=== PATIENT | female | born 1935 | race Caucasian/White ===

== ENCOUNTER → 2023-03-28 15:03 | Outpatient (REF) | payer MEDICARE, OTHER, SELFPAY ==
[2023-03-28 15:49] LABS: % Basophils 1.4 % (0-2); % Eosinophils 1.3 % (0-6); % Immature Granulocytes 0.5 % (0-0.5); % Lymphocytes 18.3 % (20.5-51.1); % Monocytes 11.3 % (1.7-9.3); % Neutrophils 67.2 % (42.2-75.2); Absolute Basophils 0.1 10^3/uL (0-0.2); Absolute Eosinophils 0.1 10^3/uL (0-0.7); Absolute Lymphocytes 1.6 10^3/uL (1.2-3.4); Absolute Neutrophils 5.8 10^3/uL (1.4-6.5); Hematocrit 40.2 % (37.0-47.0); Hemoglobin 13.4 g/dL (12.0-16.0); Mean Corp Hgb Conc. 33.3 g/dL (33.0-37.0); Mean Corpuscular Hgb 32.8 pg (27.0-31.0); Mean Corpuscular Volume 98.5 fL (81.0-99.0); Mean Platelet Volume 9.5 fL (7.4-10.4); Nucleated Red Blood Cells % 0 %; Platelet Count 320 10^3/uL (130-400); Red Blood Cell Count 4.08 10^6/uL (4.20-5.40); Red Cell Dist. Width 12.6 % (11.5-14.5); White Blood Cell Count 8.7 10^3/uL (4.8-10.8)
[2023-03-28 15:53] LABS: Urine Albumin Trace (Neg - Trace); Urine Bilirubin Negative (Negative); Urine Character Clear (Clear); Urine Color Yellow; Urine Glucose Negative (Negative); Urine Ketone Trace (Negative); Urine Leukocyte 2+ (Negative); Urine Nitrite Negative (Negative); Urine Occult Blood Negative (Negative); Urine Urobilinogen Negative (Neg - 1+)
[2023-03-28 15:59] LABS: Urine Mucus Few
[2023-03-28 16:00] LABS: Ammonia < 9 umol/L (9-30); Urine Bacteria Few (Negative); Urine Red Blood Cell 0-2 /HPF (0-2)
[2023-03-28 16:04] LABS: Erythrocyte Sed Rate 17 mm/hour (0-20)
[2023-03-28 16:12] LABS: Osmolality Serum 281 mOsm/kg (275-300)
[2023-03-28 16:16] LABS: Osmolality Urine 271 mOsm/kg (300-900)
[2023-03-28 16:18] LABS: ALT (SGPT) 19 U/L (0-35); AST (SGOT) 29 U/L (14-36); Albumin 3.7 g/dl (3.5-5.0); Alkaline Phosphatase 89 U/L (38-126); Blood Urea Nitrogen 13 mg/dl (7-17); Calcium 9.4 mg/dl (8.4-10.2); Carbon Dioxide 27 mmol/L (22-30); Chloride 98 mmol/L (98-107); Glucose 91 mg/dl (70-99); Potassium 4.4 mmol/L (3.5-5.1); Sodium 130 mmol/L (135-145); Total Bilirubin 0.7 mg/dl (0.2-1.3); Total Protein 6.3 g/dl (6.3-8.2); eGFR > 60.00
[2023-03-28 16:34] LABS: Urine Sodium 8 mmol/L (30-90)
[2023-03-28 16:42] LABS: TSH Reflex To Free T4 0.88 uIU/ml (0.47-4.68)
[2023-03-31 17:02] LABS: Lyme Antibody Screen, EIA Negative (Negative)
== END ==
LOC: REG 15:03
PROVIDERS: ATTENDING PHYSICIAN Nurse Practitioner Primary Care
DX: G93.32 Myalgic encephalomyelitis/chronic fatigue syndrome (principal); E87.1 Hypo-osmolality and hyponatremia; R44.3 Hallucinations, unspecified; G44.89 Other headache syndrome
CPT/HCPCS: 36415; 80053; 81003; 81015; 82140; 83930; 83935; 84300; 84443; 85025; 85652; 86618; 87077; 87086; 87186

== ENCOUNTER 2023-04-01 23:20 | Inpatient (IN) | payer MEDICARE, OTHER, SELFPAY ==
[2023-04-01 20:29] VITALS: BMI 21.0
[2023-04-01 20:31] VITALS: BP 126/84
--- NOTE | 2023-04-01 21:26 | ED.GENMED ---
History of Present Illness
General
Chief Complaint: Weakness
Source: patient
Exam Limitations: none
Time Seen by Provider: 04/01/23 20:57
Nursing documentation reviewed up to this point in time: agreed with
Travel History
Have you had any contact with someone who has COVID-19?: No
Do you have any symptoms of coronavirus? Fever > 100 degrees, chills, cough, shortness of breath, sore throat, loss of taste or smell, muscle aches, or headache?: No
History of Present Illness
History of Present Illness:
Patient diagnosed with UTI and started on Macrobid yesterday, presents to ED secondary to increased generalized weakness, decreased appetite, and multiple vomiting episodes today. Denies fever or chills. Denies coughing. Denies abdominal pain.
Denies diarrhea. Denies difficulty with urination. Of note, patient had hallucination 5 days ago at home, noted by her . Subsequently, patient was evaluated by her primary care physician who ordered blood work test as well as urinalysis,
which revealed infection. In addition, patient taking Tamiflu prophylactically, after being exposed to her grandchild who tested positive influenza 3 weeks ago, developed white coating in her tongue and swelling on day 4 of Tamiflu. States
discontinuing the medication, her symptoms resolved uneventfully. Patient had been at her baseline health when the confusion developed last week.
Past History
Past History
ED Past Medical History: Arrthythmia (afib on eliquis) and Hyperthyroidism
ED Past Surgical History: Cardiac and Orthopedic
Review of Systems
Review of Systems
Allergies reviewed?: Yes
All Other Systems: ROS reviewed and negative except as documented in HPI and ROS
Constitutional: Reports no symptoms
EENT: Reports no symptoms
Respiratory: Reports no symptoms
Cardiac: Reports no symptoms
ABD/GI: Reports nausea and vomiting; Denies abdominal pain or diarrhea
: Reports no symptoms
Musculoskeletal: Reports no symptoms
Skin: Reports no symptoms
Neurological: Reports weakness and other (Confusion)
Phy Exam
Physical Exam
Physical Exam:
Physical Exam
General: mild distress, not acutely ill. afebrile. tachycardic. weak appearing.
Head: nc/at. eomi
Neck: supple. no meningeal signs.
Heart: tachycardic, no murmur. equal radial pulses.
Lungs: no acute respiratory distress. clear bilaterally
Abdomen: normal bowel sounds. not tender.
Neuro: alert and oriented. no focal neurological deficits
Skin: no rash
Psychiatric: well kept. interactive and cooperative
Extremities: no edema. no calf tenderness.
Course
Orders/Labs/Results
Orders:
Orders
04/01/23 20:40
Electrocardiogram (*1) Urgent
Reason for Study: Tachycardia
04/01/23 20:41
EKG- Treatment ONCE
04/01/23 21:17
Straight cath- Treatment ONCE
04/01/23 21:19
COVID-19 Antigen Urgent
Source: Nasal Swab
Complete Blood Count/With Diff Urgent
Comprehensive Metabolic Panel Urgent
Lactic Acid Q4H
Comment: ON ICE, CANCEL 2ND ORDER IF FIRST LACTIC ACID LEVEL <2
Urinalysis Reflex To Culture Urgent
Date Specimen was Collected: 04/01/23
Time Specimen was Collected: 21:17
Blood Culture Q30M
АНДРЕЙ Source: Blood/Venous
Specimen Description:
Comment: FROM 2 SEPARATE SITES
Blood Culture Q30M
АНДРЕЙ Source: Blood/Venous
Specimen Description:
Comment: FROM 2 SEPARATE SITES
Influenza A+B Rapid Molecular Urgent
АНДРЕЙ Source: Nasal Swab
Specimen Description:
04/01/23 21:36
0.9% Sodium Chloride 1000 ml [Nss] 1,000 ml IV BOLUS
Acetaminophen [Tylenol] 650 mg PO NOW STA
04/01/23 22:05
LevoFLOXacin 500 MG/100 ML [Levaquin] 500 mg in 100 ml IV NOW
Ondansetron Injectable [Zofran] 4 mg IV NOW STA
04/01/23 22:08
Influenza A+B Rapid Molecular Urgent
АНДРЕЙ Source: Nasal Swab
Specimen Description:
04/01/23 22:34
Diltiazem HCl [Cardizem] 10 mg IV NOW STA
04/01/23 22:38
Apixaban [Eliquis] 2.5 mg PO NOW STA
04/01/23 22:45
Diltiazem 125 mg/125 ml Nss [Cardizem] 125 mg in 125 ml IV PER PROTOCOL
Initial dose in mg/hr, then titrate:: 5
Titrate to keep:: Heart rate 80-100 bpm
Titrate by mg/hr:: 5 mg/hr
Frequency of titrations (minutes):: 15
Maximum dose in mg/hr:: 15
04/01/23 22:55
Admit/Transfer Patient As Directed
Co-Sign Provider:
Level of Care: Inpatient admission
Assign to:: IMU- Intermediate Care
Physician / Group: radha medrano
Diagnosis: UTI
Reason for Hospitalization: UTI
Expected length of stay greater than two midnights?: Yes
ELOS- Estimated Length of Stay in days: 3
I certify the patient meets the requirements for IP care: Yes
04/01/23 22:56
Code Status As Directed
Resuscitation Status: Full Code
04/02/23 01:30
Lactic Acid Q4H
Comment: ON ICE, CANCEL 2ND ORDER IF FIRST LACTIC ACID LEVEL <2
Abnormal Lab Results
04/01/23
21:19
WBC 12.8 H 10^3/uL
(4.8-10.8)
MCH 32.3 H pg
(27.0-31.0)
Abs Immat Gran (auto) 0.1 H 10^3/uL
(0-0.05)
Absolute Neuts (auto) 11.8 H 10^3/uL
(1.4-6.5)
Absolute Lymphs (auto) 0.3 L 10^3/uL
(1.2-3.4)
Neutrophils % 92.2 H %
(42.2-75.2)
Lymphocytes % 2.0 L %
(20.5-51.1)
Sodium 130 L mmol/L
(135-145)
Creatinine 0.5 L mg/dL
(0.6-1.0)
Glucose 132 H mg/dl
(70-99)
AST 62 H U/L
(14-36)
ALT 46 H U/L
(0-35)
04/01/23 21:19
04/01/23 21:19
Vital Signs
Initial and Last Documented VS:
Initial Vital Signs
Temp Pulse Resp BP Pulse Ox
98.4 F 125 18 126/84 98
04/01/23 20:31 04/01/23 20:31 04/01/23 20:31 04/01/23 20:31 04/01/23 20:31
Last Documented Vital Signs
Temp Pulse Resp BP Pulse Ox
100.6 F H 134 33 109/86 94
04/01/23 22:00 04/01/23 22:50 04/01/23 22:30 04/01/23 22:50 04/01/23 22:30
MDM/Problems Addressed
MDM/Problems Addressed:
Urine culture (03/28) reviewed - enterococcus. Levaquin ordered.
Patient will be admitted for further evaluation and treatment.
Patient started on Cardizem infusion secondary to rapid atrial fibrillation.
*Critical Care Note
Total Time (30-74mins, 75-104mins- exclusive of procedures): Not Applicable
ED Attending Note
-
Portions of this chart may have been created with voice recognition software.� Occasional wrong word or��sound alike� substitutions may have occurred due to the inherent limitations of voice recognition software.
Discharge Plan
Departure
Patient Disposition: Admit
Date of Disposition: 04/01/23
Time of Disposition: 22:28
Admit to: Med/Surg
Presentation/result/management discussed w/ accepting MD/DO: Hospitalist
Covid-19: Negative COVID-19
Discharge Problem:
Acute UTI, Fever, Atrial fibrillation, rapid
Interventions
Interventions:
*Risk Screen - Suicide Last Done: 04/01/23 20:33
*General Assessment Last Done: 04/01/23 23:33
*Neglect/Abuse Screening Last Done: 04/01/23 20:33
[2023-04-01 21:28] LABS: % Basophils 0.3 % (0-2); % Eosinophils 0.2 % (0-6); % Immature Granulocytes 0.5 % (0-0.5); % Monocytes 4.8 % (1.7-9.3); % Neutrophils 92.2 % (42.2-75.2); Absolute Immature Granulocytes 0.1 10^3/uL (0-0.05); Absolute Lymphocytes 0.3 10^3/uL (1.2-3.4); Absolute Monocytes 0.6 10^3/uL (0.1-0.6); Absolute Neutrophils 11.8 10^3/uL (1.4-6.5); Hematocrit 41.3 % (37.0-47.0); Hemoglobin 14.2 g/dL (12.0-16.0); Mean Corp Hgb Conc. 34.4 g/dL (33.0-37.0); Mean Corpuscular Hgb 32.3 pg (27.0-31.0); Mean Corpuscular Volume 93.9 fL (81.0-99.0); Mean Platelet Volume 9.4 fL (7.4-10.4); Nucleated Red Blood Cells % 0 %; Platelet Count 324 10^3/uL (130-400); Red Cell Dist. Width 12.6 % (11.5-14.5); White Blood Cell Count 12.8 10^3/uL (4.8-10.8)
[2023-04-01 21:40] LABS: Lactic Acid 1.2 mmol/L (0.7-2.0)
[2023-04-01 21:43] LABS: ALT (SGPT) 46 U/L (0-35); AST (SGOT) 62 U/L (14-36); Albumin 4.1 g/dl (3.5-5.0); Alkaline Phosphatase 108 U/L (38-126); Blood Urea Nitrogen 11 mg/dl (7-17); Calcium 9.7 mg/dl (8.4-10.2); Carbon Dioxide 23 mmol/L (22-30); Chloride 98 mmol/L (98-107); Glucose 132 mg/dl (70-99); Potassium 3.5 mmol/L (3.5-5.1); Sodium 130 mmol/L (135-145); Total Bilirubin 1.1 mg/dl (0.2-1.3); Total Protein 6.7 g/dl (6.3-8.2); eGFR > 60.00
[2023-04-01 21:44] LABS: COVID-19 Antigen Negative (Negative)
[2023-04-01] MEDS: NSS 1000 IV (22:00)
[2023-04-01] MEDS: TYLENOL 650 MG PO (22:01)
[2023-04-01] MEDS: LEVAQUIN 100 IV (22:10)
[2023-04-01] MEDS: ZOFRAN 4 MG IV (22:11)
[2023-04-01 22:19] VITALS: BP 109/86
--- NOTE | 2023-04-01 22:29 | HPS.HSE ---
Addendum entered and electronically signed by Celso Olson MD 04/01/23 23:07:
Patient seen examined independently with [employer].� 87-year-old female past medical history atrial fibrillation on Eliquis, hypothyroidism, presenting with few days of weakness, decreased appetite and vomiting.� Had hallucinations 4 to 5 days ago.� Had
low-grade fever today.� No urinary symptoms or abdominal pain.� She had urinalysis and urine culture performed by primary care physician on 03/28 which showed Enterococcus.� She was started on Macrobid yesterday.� Patient also in atrial fibrillation
with RVR triggered by fever.� Labs show leukocytosis. Urinalysis pending.� Levaquin started.� IV fluids.� Cardizem drip started.
Original Note:
Family Physician
-
Family Physician: Ben Martinez
Chief Complaint
-
generalized weakness
vomiting
hallucination
History of Present Illness
87 year old with PMH for atrial fib, hyperparathyroidism presented to us with generalized weakness, vomiting since yesterday. patient was hallucinating on night. she had UA tested as outpatient, grew enterococcus and initiated on Levaquin
on Friday. stated poor appetite yesterday. noted low grade temp at home. denied runny nose, congestion and cough. denied chest pain, sob. denied abdominal pain, diarrhea. denied dysuria or hematuria.
repeat UA and culture pending. received a dose of Levaquin in ER. admitting for further management. patient also noted in atrial fib with RVR. initiated on Cardizem drip.
Medical History
Past Medical History
Past Medical History: Reports Other
Additional Past Medical History:
atrial fib
hyperthyroidism
Past Surgical History: Reports Other
Additional Past Surgical History:
total right hip partial replacement
hernia repair
abdominal aorta surgery
left knee surgery
Social History
Tobacco: Non-smoker
Alcohol: Occasional
Drug: None
Personal:
Living: With Family
Family History
Family History: Not pertinent
Allergies / Home Medications
Allergies reflects when Allergies were last updated in [employer].
Home Medications with original date entered in [employer]
Allergy/Medication List:
Allergies
Allergy/AdvReac Type Severity Reaction Status Date / Time
Latex, Natural Rubber Allergy Swelling Verified 11/25/22 16:56
mold Allergy Headache Verified 11/25/22 16:56
Penicillins Allergy Unknown Verified 11/25/22 16:56
Home Medications
apixaban 2.5 mg tablet (Eliquis) 2.5 mg PO BID Blood clot prevention/tx #60 tabs 10/16/21
ascorbic acid (vitamin C) 500 mg tablet (Vitamin C) 500 mg PO DAILY 11/13/21
cholecalciferol (vitamin D3) 25 mcg (1,000 unit) tablet (Vitamin D3) 1,000 mcg PO QPM 11/13/21
lutein 20 mg capsule 20 mg PO DAILY 11/13/21
multivitamin 1 tab PO DAILY 11/13/21
Tri-Est 1.25mg/Progesterine 50 1 cap PO DAILY 04/01/23
latanoprost 0.005 % eye drops 1 drp RIGHT EYE HS 04/01/23
propranolol 20 mg tablet 20 mg PO BID 04/01/23
thyroid (pork) 65 mg tablet 65 mg PO DAILY 04/01/23
Review of Systems
-
Constitutional: Reports Fever and Fatigue
EENT: Reports No Symptoms
Respiratory: Reports No Symptoms
Cardiac: Reports No Symptoms
Abdomen/GI: Reports Nausea and Vomiting
: Reports No Symptoms
Musculoskeletal: Reports No Symptoms
Skin: Reports No Symptoms
Neurological: Reports Weakness
Endocrine: Reports No Symptoms
Hematologic/Lymphatic: Reports No Symptoms
Psych: Reports No Symptoms
Physical Exam
Vital Signs
Vital Signs
Temp Pulse Resp BP Pulse Ox
98.4 F 130 23 126/84 97
04/01/23 20:31 04/01/23 21:30 04/01/23 21:30 04/01/23 20:31 04/01/23 21:30
Physical Exam
General: Well Developed, Well Nourished and No Apparent Distress
HEENT: NormoCephalic, Moist mucous membranes and Atraumatic
Respiratory: Clear
Cardiac: Irregular Rhythm and Tachycardia; No Murmur or Rub
GI: Soft, Non Tender, Non Distended and Normal Bowel Sounds; No Organomegaly
Rectal: Deferred by Provider
Musculoskeletal: No Clubbing, No Cyanosis and No Edema
Skin: No Rash
Neuro: AO x 3 and Nonfocal/grossly intact
Psych: Calm
Laboratory Results
-
04/01/23 21:19
04/01/23 21:19
Laboratory Results
Lactic Acid 1.2 mmol/L (0.7-2.0) 04/01/23 21:19
Total Bilirubin 1.1 mg/dl (0.2-1.3) 04/01/23 21:19
AST 62 U/L (14-36) H 04/01/23 21:19
ALT 46 U/L (0-35) H 04/01/23 21:19
Alkaline Phosphatase 108 U/L (38-126) 04/01/23 21:19
Data Reviewed
-
Lab Data: Labs Reviewed by me
Impression/Plan
-
#urinary tract infection
-urine culture with enterococcus
-wbc 12.8
-blood culture sent from ER
-repeat UA pending
-iv Levaquin
-ctm
#chornic hyponatremia likely dehydration
-na 134
-ctm
-normal saline continued
#elevated transaminase likely dehydration
-ast 62,alt 46
-normal saline continue
-monitor LFTs
#atrial fib with RVR exacerbated by acute infection/vomiting
-HR in 130's
-EKg with atrial fib with RVR
-fluids continued
-eliquis continued
-propranolol continued
-Cardizem continued
-follows Dr. Cruz, consider cardiology consult if no improvement in HR
Hypothyroidism
- thyroid continued
DVT ppx: Eliquis
Code: Full
[2023-04-01] MEDS: ELIQUIS 2.5 MG PO (22:43)
[2023-04-01] MEDS: CARDIZEM 125 IV (22:48)
[2023-04-01] MEDS: CARDIZEM 10 MG IV (22:50)
[2023-04-01 23:04] VITALS: BP 94/54
[2023-04-01 23:22] VITALS: BP 97/69
[2023-04-01 23:36] LABS: Urine Albumin Trace (Neg - Trace); Urine Bilirubin Negative (Negative); Urine Character Clear (Clear); Urine Color Yellow; Urine Glucose Negative (Negative); Urine Ketone 3+ (Negative); Urine Leukocyte Negative (Negative); Urine Nitrite Negative (Negative); Urine Occult Blood Negative (Negative); Urine Urobilinogen Negative (Neg - 1+)
[2023-04-01 23:57] VITALS: BMI 21.0
[2023-04-02] VITALS (31 sets, daily range): BP systolic 84–135; BP diastolic 55–96; PULSE 99–110; O2SAT 94–95; BMI 16.1; BMI 18.9
[2023-04-02] MEDS: NSS 1000 IV ×2 (00:16→12:07)
[2023-04-02 04:17] LABS: Hematocrit 36.2 % (37.0-47.0); Hemoglobin 12.4 g/dL (12.0-16.0); Mean Corp Hgb Conc. 34.3 g/dL (33.0-37.0); Mean Corpuscular Hgb 32.9 pg (27.0-31.0); Mean Platelet Volume 9.8 fL (7.4-10.4); Platelet Count 293 10^3/uL (130-400); Red Blood Cell Count 3.77 10^6/uL (4.20-5.40); Red Cell Dist. Width 12.6 % (11.5-14.5); White Blood Cell Count 12.3 10^3/uL (4.8-10.8)
[2023-04-02 04:51] LABS: Blood Urea Nitrogen 10 mg/dl (7-17); Calcium 8.5 mg/dl (8.4-10.2); Carbon Dioxide 22 mmol/L (22-30); Chloride 101 mmol/L (98-107); Estimated Creatinine Clearance 48 ml/min; Glucose 123 mg/dl (70-99); Potassium 3.5 mmol/L (3.5-5.1); Sodium 132 mmol/L (135-145); TSH 0.27 uIU/ml (0.47-4.68); eGFR > 60.00
[2023-04-02] MEDS: ARMOUR THYROID 60 MG PO (06:11)
--- NOTE | 2023-04-02 06:28 | PTCARENOTE ---
No acute events overnight. Placed on 2 liters NC. Remains in afib on cardizem gtt.
--- NOTE | 2023-04-02 07:39 | W.PN.HOSP.TC ---
Today's Communication/Plan
-
see A/P
Assessment / Plan
Assessment / Plan
HPI:�87-year-old female past medical history atrial fibrillation on Eliquis, hypothyroidism, p/w weakness, decreased appetite and vomiting.�
Had hallucinations 4 to 5 days ago.� Had low-grade fever DOA.� No urinary symptoms or abdominal pain.�She had urinalysis and urine culture performed by primary care physician on 03/28 which showed Enterococcus. She was started on Macrobid the day
prior to admission.�Patient also in atrial fibrillation with RVR triggered by fever.� Labs show leukocytosis. Urinalysis pending.� Levaquin started.� IV fluids.� Cardizem drip started.
A/P:
# Acute metabolic encephalopathy with visual hallucination (resolved) due to sepsis POA with enterococcus urinary tract infection
Outpt urine culture 03/28 with enterococcus
Follow blood culture
repeat UA this admission improved
Cont IV Levaquin
PT OT Eval for weakness
# Chronic mild hyponatremia, improving
Monitor on IVF
# elevated transaminase likely reactive
monitor LFTs
# Paroxysmal�atrial fib
Improved RVR with Cardizem drip, switch drip to PO Cardizem
Check update echo
Cont [facility] Eliquis
pt follows Dr. Andrews, consider cardiology consult if no improvement in HR
# Essential tremor
Cont [facility] Propranolol
# Hypothyroidism
thyroid continued
DVT ppx: Eliquis
Code: Full
DW RN
updated on the phone
Anticipated Discharge: 24 - 48 hours
Subjective/Interval History
-
Date of Service: April 02, 2023
Objective Data
-
Labs:
Laboratory Results
04/01/23 04/02/23
21:19 03:19
WBC 12.8 H 12.3 H
Hgb 14.2 12.4
Hct 41.3 36.2 L
Plt Count 324 293
Sodium 130 L 132 L
Potassium 3.5 3.5
Chloride 98 101
Carbon Dioxide 23 22
BUN 11 10
Creatinine 0.5 L 0.4 L
Glucose 132 H 123 H
Calcium 9.7 8.5
Total Bilirubin 1.1
AST 62 H
ALT 46 H
Alkaline Phosphatase 108
Vital Signs:
Vital Signs
Temp Pulse Resp BP Pulse Ox
36.8 C 93 26 111/74 94
04/02/23 04:12 04/02/23 07:00 04/02/23 07:00 04/02/23 07:00 04/02/23 07:00
I&O
04/01/23 04/02/23 04/03/23
06:59 06:59 06:59
Intake Total 960 / 960
Output Total 100 / 100
Balance 860 / 860
Review of Systems
-
All other systems: Reviewed and negative
Constitutional: Reports Weakness
Physical Exam
-
General: Well Developed, Comfortable, Conversant and Appears Chronically Ill
HEENT: Normocephalic, Atraumatic and Oxygen (2L NC)
Respiratory: Clear to Auscultation and Non Labored Respirations; Negative Accessory Resp Muscle Use
Cardiac: S1/S2 and Irregular Rhythm
GI: Soft, Nontender and Nondistended
Neuro: Awake
Psych: Calm and Intact Judgement/Insight
Data Reviewed
-
Labs: Labs Reviewed by me
[2023-04-02] MEDS: CARDIZEM 30 MG PO (08:18)
[2023-04-02] MEDS: ELIQUIS 2.5 MG PO ×2 (08:18→19:53)
[2023-04-02] MEDS: KCL 40 MEQ PO (08:18)
[2023-04-02] MEDS: INDERAL 20 MG PO (08:18)
[2023-04-02 08:24] LABS: ALT (SGPT) 31 U/L (0-35); AST (SGOT) 41 U/L (14-36); Albumin 2.8 g/dl (3.5-5.0); Alkaline Phosphatase 65 U/L (38-126); Direct Bilirubin 0.5 mg/dl (0.0-0.4); Total Protein 5.3 g/dl (6.3-8.2)
--- NOTE | 2023-04-02 11:51 | PTCARENOTE ---
Patient's BP low at 84/55. Pt's Cardizem @5 ml/hr turned off. TT to to make aware. Order for 250 ml bolus.
[2023-04-02] MEDS: NSS 250 IV ×2 (12:07→13:46)
--- NOTE | 2023-04-02 13:37 | PTCARENOTE ---
Patient's BP still soft following 250 ml bolus, most recent BP 91/59. Pt still due for 1300 dose of Cardizem 30mg PO. HR's 100-110s. TT to . Advised to hold Cardizem.
[2023-04-02] MEDS: CARDIZEM PO (13:41)
--- NOTE | 2023-04-02 13:48 | CON.CAR ---
Addendum entered and electronically signed by Cecilia Burns MD 04/02/23 17:45:
I saw and examined the patient.
The Manager [employer]'s note was reviewed and I agree with the note.
Comment: Briefly, Ms Olmedo is a 87-year-old female with past medical history of permanent atrial fibrillation on chronic anticoagulation with Eliquis, chronic hyponatremia, hypothyroidism, moderate mitral regurgitation, mild to moderate aortic
regurgitation who presents this admission with a UTI and sepsis secondary to urinary source found to be in A-fib with RVR for which we are consulted. Her heart rates are being triggered due to underlying infection. She has had previous
cardioversions and reverted back to atrial fibrillation.
Vital signs reviewed. Telemetry with intermittent episodes of A-fib with RVR. Exam notable for an elderly female in no acute distress, awake and alert, irregularly irregular heart rhythm, normal S1 and S2, 2 out of 6 systolic ejection murmur at
the right upper sternal border, lungs are clear to auscultation bilaterally, no JVD, abdomen is soft nontender, nondistended with active bowel sounds, warm extremities.
Recommendations:
1. Agree with rate control strategy in the setting of advanced age with prior cardioversions and reversion back to atrial fibrillation. Continue standing propranolol which she comes in on with as needed doses as directed. Continue to monitor
blood pressures closely.
2. On Eliquis long-term for stroke prevention.
Cecilia Burns MD, [facility], [facility]
Original Note:
Consultation
Consultation Request
Date/Time Consultation Requested: 04/02/23
Date/Time Consultation Performed: 04/02/23
Requesting Provider: Dr. Bowers
Performing Provider: Dr. Beck
Reason for Consultation: Afib with RVR
Medical History
-
History of Present Illness:
Patient came to ER yesterday with confusion and was admitted with sepsis and UTI, cardiology is now consulted for permanent A-fib that was rapid on admission. Patient is in the room along with her son and daughter. They report that the patient
had increasing confusion starting as much as 1 week ago. Things became worse yesterday and patient came to ER and was admitted with sepsis and Enterococcus UTI. Patient has a history of permanent A-fib. She has previous cardioversion
11/29/2021 and 11/29/2022, but always recurred with A-fib and there was no symptomatic improvement with yazdanism of sinus rhythm so she was transition to permanent A-fib with rate control. Patient takes short acting propranolol 20 mg twice daily
as an outpatient. Patient takes Eliquis 2.5 mg twice daily as an outpatient for age 87 and weight of 50 kg. Patient was briefly started on Cardizem drip in the ER for rapid A-fib and this morning was given her usual dose of short acting
propranolol 20 mg twice daily plus a dose of short acting Cardizem 30 mg p.o. 4 times daily. The patient then developed hypotension and the short acting Cardizem was stopped. Patient continues to be unaware of palpitations. No chest pain or
shortness of breath.
PMH:
Permanent atrial fibrillation
Chronic Eliquis anticoagulation
Chronic hyponatremia
Hypothyroidism
GERD
Moderate MR
Mild to moderate AI
Past Medical History
Past Medical History: Other (in HPI)
Past Surgical History: Orthopedic
Social History
Tobacco: Non-Smoker
Alcohol: None
Drug: None
Personal:
Family History
Family History: Cancer, Hypertension and Other (CVA)
Allergies / Home Medications
Allergy/AdvReac Type Severity Reaction Status Date / Time
Latex, Natural Rubber Allergy Swelling Verified 11/25/22 16:56
mold Allergy Headache Verified 11/25/22 16:56
Penicillins Allergy Unknown Verified 11/25/22 16:56
Medication Instructions Recorded Confirmed Type
apixaban 2.5 mg tablet (Eliquis) 2.5 mg PO BID Blood clot 10/16/21 04/01/23 Rx
prevention/tx #60 tabs
ascorbic acid (vitamin C) 500 mg 500 mg PO DAILY Supplement 11/13/21 04/01/23 History
tablet (Vitamin C)
cholecalciferol (vitamin D3) 25 1,000 mcg PO QPM Supplement 11/13/21 04/01/23 History
mcg (1,000 unit) tablet (Vitamin
D3)
lutein 20 mg capsule 20 mg PO DAILY Supplement 11/13/21 04/01/23 History
multivitamin 1 tab PO DAILY Supplement 11/13/21 04/01/23 History
Tri-Est 1.25mg/Progesterine 50 1 cap PO DAILY HORMONE 04/01/23 04/01/23 History
latanoprost 0.005 % eye drops 1 drp RIGHT EYE HS Eye Condition 04/01/23 04/01/23 History
propranolol 20 mg tablet 20 mg PO BID Blood Pressure 04/01/23 04/01/23 History
thyroid (pork) 65 mg tablet 65 mg PO DAILY Thyroid 04/01/23 04/01/23 History
Review of Systems
-
History Source: Patient and Family (son and daughter bedside helping with HPI)
All other systems: Negative unless noted
Physical Exam
Vital Signs
Temp Pulse Resp BP Pulse Ox
98.0 F 93 18 91/59 95
04/02/23 11:44 04/02/23 13:30 04/02/23 13:30 04/02/23 13:30 04/02/23 13:30
GEN: NAD. AAO to person, place and situation
HEENT: EOMI, MMM
LUNGS: CTA B/L, no wheezes or rales
CV: irreg, S1/S2, 1/6 syst LSB
ABD: soft, BS+, NT, ND
EXT: No clubbing, cyanosis, lesions or edema B/L
NEURO: Gross non-focal
SKIN: Warm, dry and pink. No rash
Lab Results
04/02/23 03:19
04/02/23 03:19
Impression / Plan
-
PCP: Dr. Martinez
Cardiology: Dr. Andrews
Impression:
Admitted with TME in the setting of UTI
Enterococcus UTI
Sepsis
Permanent atrial fibrillation with rapid ventricular response on admission
Chronic Eliquis anticoagulation
Chronic hyponatremia
Elevated LFTs
Hypothyroidism
GERD
Moderate MR
Mild to moderate AI
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
Plan:
-Patient came to ER yesterday with confusion and was admitted with sepsis and UTI, cardiology is now consulted for permanent A-fib that was rapid on admission. Patient is in the room along with her son and daughter. They report that the patient
had increasing confusion starting as much as 1 week ago. Things became worse yesterday and patient came to ER and was admitted with sepsis and Enterococcus UTI. Patient has a history of permanent A-fib. She has previous cardioversion
11/29/2021 and 11/29/2022, but always recurred with A-fib and there was no symptomatic improvement with yazdanism of sinus rhythm so she was transition to permanent A-fib with rate control. Patient takes short acting propranolol 20 mg twice daily
as an outpatient. Patient takes Eliquis 2.5 mg twice daily as an outpatient for age 87 and weight of 50 kg. Patient was briefly started on Cardizem drip in the ER for rapid A-fib and this morning was given her usual dose of short acting
propranolol 20 mg twice daily plus a dose of short acting Cardizem 30 mg p.o. 4 times daily. The patient then developed hypotension and the short acting Cardizem was stopped. Patient continues to be unaware of palpitations. No chest pain or
shortness of breath.
-Talked with patient's son and daughter in the room at length. Reviewed admission for sepsis and talked briefly about what sepsis is and the current plan of treatment which include supportive care and antibiotics.
-Also reviewed patient's history of permanent atrial fibrillation and that it is not unexpected for A-fib rates to become rapid in the setting of sepsis. Reviewed initial rate control measures with Cardizem drip and then the doses of short acting
Inderal and Cardizem this morning. Made a plan to increase her dose of Inderal to 40 mg twice daily, but this is written in her chart as 20 mg twice daily standing order plus a as needed order for 20 mg twice daily to account for if blood pressure
is less than 110. Hopefully most of the time she will be able to tolerate 40 mg twice daily dosing.
-Her usual dose of Eliquis 2.5 mg twice daily has been continued. Age 87 and weight 50 kg
-ECG reviewed by me shows atrial fibrillation and rapid ventricular response at 120 bpm, stable QTc and no acute ischemic changes
-Patient with a history of moderate mitral regurgitation and posterior leaflet prolapse by echo 05/14/2021. There is also history of mild to moderate AI. There is no evidence of heart failure at this time and will follow daily weights, ordered by
me, while receiving IV fluids.
--- NOTE | 2023-04-02 14:07 | VNURNOTE ---
Home Health Liaison met with patient's daughter Brionna to discuss [facility] nurse/therapy, visits, schedule and homebound status. She is agreeable and understands that visits at home will be 2-3 x per week to assess and teach medical management. VN
brochure provided with contact information. Daughter is aware that [facility] will contact the patient for start of care in 1-2 days after discharge from . Daughter requesting [employer] consult for grief resources as the patient has lost 3 family members in
the past 8 months. [facility] referral completed in [facility].
--- NOTE | 2023-04-02 16:05 | CM ---
Patient with Dx sepsis, UTI, Paroxysmal�atrial fib. Room air. Receiving IV Levaquin, IVF. PT & OT recommend HH.
Met with patient, and daughter Brionna.
The patient resides with her in a 2 story house with 2 EDMUNDO.
The patient has been independent in ADLs and ambulation using her RW when outside.
She was able to do the stairs at home despite some right knee pain.
DME - [facility], [facility]
VN - prior [facility]
SNF - none
[facility] - [facility]
PCP - Ben Martinez
Pharmacy - [facility]
Offered VN and patient and family request [facility] for PT/OT and possibly SN.
Referral to Ivania, [facility] Liaison.
Plan home with [facility].
[2023-04-02] MEDS: XALATAN OPHTHALMIC SOLUTION 1 DROP RIGHT EYE (20:53)
[2023-04-02] MEDS: LEVAQUIN 150 IV (22:01)
--- NOTE | 2023-04-02 22:05 | PTCARENOTE ---
bp back wnl- ax3 but forgetful. afib 110-120. pt and family reqest stool softener.no bm in almost 2 days. developmental therapist ordered softener see apr. bed alarm in place due to forgetfulness
[2023-04-02] MEDS: SENOKOT-S 1 TABLET PO (22:07)
[2023-04-03] VITALS (14 sets, daily range): BP systolic 112–147; BP diastolic 79–99; PULSE 103; BMI 18.4
[2023-04-03] MEDS: NSS 1000 IV (01:15)
[2023-04-03 04:18] LABS: Hematocrit 33.2 % (37.0-47.0); Hemoglobin 11.4 g/dL (12.0-16.0); Mean Corp Hgb Conc. 34.3 g/dL (33.0-37.0); Mean Corpuscular Hgb 32.2 pg (27.0-31.0); Mean Corpuscular Volume 93.8 fL (81.0-99.0); Mean Platelet Volume 9.5 fL (7.4-10.4); Platelet Count 234 10^3/uL (130-400); Red Blood Cell Count 3.54 10^6/uL (4.20-5.40); Red Cell Dist. Width 12.6 % (11.5-14.5)
[2023-04-03 05:04] LABS: ALT (SGPT) 23 U/L (0-35); AST (SGOT) 23 U/L (14-36); Albumin 2.5 g/dl (3.5-5.0); Alkaline Phosphatase 61 U/L (38-126); Blood Urea Nitrogen 13 mg/dl (7-17); Calcium 8.7 mg/dl (8.4-10.2); Carbon Dioxide 19 mmol/L (22-30); Chloride 105 mmol/L (98-107); Direct Bilirubin 0.4 mg/dl (0.0-0.4); Estimated Creatinine Clearance 55 ml/min; Glucose 99 mg/dl (70-99); Sodium 132 mmol/L (135-145); Total Bilirubin 0.6 mg/dl (0.2-1.3); eGFR > 60.00
[2023-04-03] MEDS: ARMOUR THYROID 60 MG PO (05:49)
--- NOTE | 2023-04-03 06:31 | PTCARENOTE ---
pt woke up confused- suspicious of taking pills. after some reoriented took pills but then was still not quite sure how she got here. support and reorientation given
--- NOTE | 2023-04-03 08:05 | PTCARENOTE ---
Patient received from lead systems analyst. Patient resting comfortably in bed. AAO, confused at times. VSS although HR now 120's-130's, will reach out to hospitalist in regards to medication being held. No events noted overnight. No complaints of pain.
NSS through IV. Call velasquez in reach.
--- NOTE | 2023-04-03 08:55 | W.PN.HOSP.TC ---
Addendum entered and electronically signed by Christelle Bowers MD 04/03/23 13:43:
Updated on the phone
Original Note:
Today's Communication/Plan
-
see A/P
Assessment / Plan
Assessment / Plan
HPI:�87-year-old female past medical history atrial fibrillation on Eliquis, hypothyroidism, p/w weakness, decreased appetite and vomiting.�
Had hallucinations 4 to 5 days ago.� Had low-grade fever DOA.� No urinary symptoms or abdominal pain.�She had urinalysis and urine culture performed by primary care physician on 03/28 which showed Enterococcus. She was started on Macrobid the day
prior to admission.�Patient also in atrial fibrillation with RVR triggered by fever.� Labs show leukocytosis. Urinalysis pending.� Levaquin started.� IV fluids.� Cardizem drip started.
A/P:
# Acute metabolic encephalopathy with visual hallucination (resolved) due to sepsis POA with enterococcus urinary tract infection
Outpt urine culture 03/28 with enterococcus
blood cultures negative
repeat UA this admission improved
Kidney US: Unremarkable sonographic appearance of the kidneys.
Cont IV Levaquin
PT OT recc HH
# Paroxysmal�atrial fib with RVR
Off Cardizem drip
cont FUR SEWER Inderal and PRN Inderal
Echo: EF 55-60%. Diastolic function indeterminate due to atrial fibrillation.�Since echocardiogram November 2021, there is no significant change.
Cont FUR SEWER Eliquis
Cardiology on board for RVR
# Chronic mild hyponatremia, improving
Monitor on IVF
# Elevated transaminase likely reactive
resolved
# Essential tremor
Cont FUR SEWER Propranolol
# Hypothyroidism
thyroid continued
DVT ppx: Eliquis
Code: Full
DW RN
Anticipated Discharge: 24 - 48 hours
Subjective/Interval History
-
Date of Service: April 03, 2023
Objective Data
-
Labs:
Laboratory Results
04/03/23
03:40
WBC 7.0
Hgb 11.4 L
Hct 33.2 L
Plt Count 234 D
Sodium 132 L
Potassium 4.0
Chloride 105
Carbon Dioxide 19 L
BUN 13
Creatinine 0.4 L
Glucose 99
Calcium 8.7
Total Bilirubin 0.6
AST 23
ALT 23
Alkaline Phosphatase 61
Vital Signs:
Vital Signs
Temp Pulse Resp BP Pulse Ox
36.9 C 153 18 133/97 94
04/03/23 04:39 04/03/23 06:00 04/03/23 06:00 04/03/23 06:00 04/03/23 06:00
I&O
04/02/23 04/03/23 04/04/23
06:59 06:59 06:59
Intake Total 960 / 960 2019
Output Total 100 / 100 200 / 200
Balance 860 / 860 1820 / 1820
Review of Systems
-
All other systems: Reviewed and negative
Constitutional: Reports Weakness
Physical Exam
-
General: Well Developed, Comfortable, Conversant and Appears Chronically Ill
HEENT: Normocephalic and Atraumatic
Respiratory: Clear to Auscultation and Non Labored Respirations; Negative Accessory Resp Muscle Use
Cardiac: S1/S2, Irregular Rhythm and Tachycardic
GI: Soft, Nontender and Nondistended
Neuro: Awake
Psych: Calm and Intact Judgement/Insight
Data Reviewed
-
Labs: Labs Reviewed by me
[2023-04-03] MEDS: SENOKOT-S 1 TABLET PO ×2 (09:00→20:02)
[2023-04-03] MEDS: ELIQUIS 2.5 MG PO ×2 (09:01→20:02)
[2023-04-03] MEDS: INDERAL 20 MG PO (09:01)
--- NOTE | 2023-04-03 09:04 | W.PN.CARDCBS ---
Today's Communication / Plan
-
Cont HR control for perm aFib
Resume IV cardizem and continue with Propanolol and increase for better HR control.
Transition off IV cardizem over next 24 hrs.
Cont Eliquis 2.5 mg BID.
Cont tx for sepsis as per primary service.
Impression / Plan
-
.
PCP: Dr. Martinez
Cardiology: Dr. Andrews
Impression:
Admitted with TME in the setting of UTI/sepsis
Enterococcus UTI with Sepsis
Permanent atrial fibrillation with rapid ventricular response on admission
Chronic Eliquis anticoagulation
Chronic hyponatremia
Elevated LFTs
Hypothyroidism
GERD
Moderate MR
Mild to moderate AI
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
Plan:
Cont HR control for perm aFib
Resume IV cardizem and continue with Propanolol and increase for better HR control.
Transition off IV cardizem over next 24 hrs.
Cont Eliquis 2.5 mg BID.
Cont tx for sepsis as per primary service.
Reviewed with nursing
HPI:Patient came to ER yesterday with confusion and was admitted with sepsis and UTI, cardiology is now consulted for permanent A-fib that was rapid on admission. Patient is in the room along with her son and daughter. They report that the
patient had increasing confusion starting as much as 1 week ago. Things became worse yesterday and patient came to ER and was admitted with sepsis and Enterococcus UTI. Patient has a history of permanent A-fib. She has previous cardioversion
11/29/2021 and 11/29/2022, but always recurred with A-fib and there was no symptomatic improvement with mormonism of sinus rhythm so she was transition to permanent A-fib with rate control. Patient takes short acting propranolol 20 mg twice daily
as an outpatient. Patient takes Eliquis 2.5 mg twice daily as an outpatient for age 87 and weight of 50 kg. Patient was briefly started on Cardizem drip in the ER for rapid A-fib and this morning was given her usual dose of short acting
propranolol 20 mg twice daily plus a dose of short acting Cardizem 30 mg p.o. 4 times daily. The patient then developed hypotension and the short acting Cardizem was stopped. Patient continues to be unaware of palpitations. No chest pain or
shortness of breath.
Progress Note - Continuous Towel Roller
Subjective
Date of Service: April 03, 2023
Pt seen and examined. No cp
Objective
Labs:
04/03/23 03:40
04/03/23 03:40
Labs
Hgb 11.4 g/dL (12.0-16.0) L 04/03/23 03:40
Hct 33.2 % (37.0-47.0) L 04/03/23 03:40
Plt Count 234 10^3/uL (130-400) D 04/03/23 03:40
Sodium 132 mmol/L (135-145) L 04/03/23 03:40
Potassium 4.0 mmol/L (3.5-5.1) 04/03/23 03:40
BUN 13 mg/dl (7-17) 04/03/23 03:40
Creatinine 0.4 mg/dL (0.6-1.0) L 04/03/23 03:40
Glucose 99 mg/dl (70-99) 04/03/23 03:40
Vital Signs and I&O:
Vital Signs
Temp Pulse Resp BP Pulse Ox
98.5 F 153 18 133/97 94
04/03/23 04:39 04/03/23 06:00 04/03/23 06:00 04/03/23 06:00 04/03/23 06:00
Vital Signs
Temp Pulse Resp BP Pulse Ox
98.5 F 153 18 133/97 94
04/03/23 04:39 04/03/23 06:00 04/03/23 06:00 04/03/23 06:00 04/03/23 06:00
Intake & Output
04/01/23 04/02/23 04/03/23 04/04/23
06:59 06:59 06:59 06:59
Intake Total 960 / 960 2019
Output Total 100 / 100 200 / 200
Balance 860 / 860 1820 / 1820
Physical Exam
Physical Exam
General: No acute distress, AAOX3
Neck: Negative JVD
Heart: Irregularly irregular, Negative S3 positive S1/S2, Negative S4, No murmur
Lungs: CTA b/l, negative wheezes/rales/rhonchi
Abd: Positive BS, NT/ND, neg rebound/rigidity/guarding
Ext: Negative cyanosis/clubbing/edema
Neuro: nonfocal
[2023-04-03] MEDS: CARDIZEM 125 IV (14:09)
--- NOTE | 2023-04-03 14:55 | PN.CDI ---
CDI
- -
CDI:
Physician Documentation Request
Admit Date: 04/01/23 23:20
Dear Doctor Elissa,
Patient noted to have atrial fib , treated with cardizem.
Hospitalist progress note refers to the atrial fibrillation as paroxysmal.
Cardiology as permanent.
In an attempt to clarify potentially conflicting documentation, please clarify the type of atrial fibrillation:
Paroxysmal atrial fibrillation - terminates spontaneously or with intervention within 7 days of onse
Permanent atrial fibrillation - when a decision has been made to accept the presence of AF and there is no further attempt to restore or maintain sinus rhythm
Other - please specify
Use of terms such as suspected, likely, concern for, or probable (associated with a specific diagnosis that is being evaluated, monitored, or treated as if it exists) are acceptable and can be coded in the inpatient setting, when documented at the
time of discharge.
Thank you,
Mica Garcia RN, BSN
CDI Specialist
tiger text
Please use your independent medical judgment in providing your response.
--- NOTE | 2023-04-03 15:00 | PN.CDI ---
CDI
- -
CDI:
Physician Documentation Request
Admit Date: 04/01/23 23:20
Dear Doctor Elissa,
86 year old female.
04/02 note states ' CBW 117 lb 4.575 oz BMI 18.9 normal range (underweight for adults > 65).... Per ASPEN/AND guidelines, pt meets for moderate malnutrition in context of chronic illness as evidenced by < 75% intake est needs x > 1 month, muscle
loss, fat loss.
Based on the information, which of the following most accurately represents the patient's nutritional status?
Moderate Malnutrition
Underweight without malnutrition
No nutritional deficiency
Other (please specify)
[place] Criteria ([facility] Hospitalist 2017)
2 or more criteria must be present for either
non severe or severe malnutrition
Note that the criteria differs related to the
presence of an acute or chronic illness
Acute Illness Chronic Illness
Energy Intake Non Severe: <75% for >7 days Non Severe: <75% for >1 month
Severe: <50% for >5 days Severe: <75% for >1 month
Weight Loss Non Severe: 1-2% over 1 week Non Severe: 5% over 1 month
5% over 1 month 7.5% over 3 months
7.5% over 3 months 10% over 6 months
1 year N/A 20% over 1 year
Severe: >2% over 1 week Severe: >5% over 1 month
>5% over 1 month >7.5% over 3 months
>7.5% over 3 months >10% over 6 months
1 year N/A >20% over 1 year
Body Fat Non Severe: Mild Decrease Non Severe: Mild Loss
Severe: Moderate Decrease Severe: Severe Loss
Muscle Mass Non Severe: Mild Decrease Non Severe: Mild Loss
Severe: Moderate Decrease Severe: Severe Loss
Fluid Accumulation Non Severe: Mild Accumulation Non Severe: Mild Accumulation
Severe: Moderate to severe Severe: Moderate to severe
accumulation accumulation
Reduced Infection Control Manager Strength Non Severe: N/A Non Severe: N/A
Severe: Measurably reduced Severe: Measurably reduced
Additional criteria that can be used to Determine if Mild or Moderate Malnutrition (Merck Manual 2018)
Mild Moderate Severe
Albumin gm/dl <3.0 gm/dl <2.5 gm/dl <2.0 gm/dl
Pre Albumin mg/dl <15 gm/dl <10 mg/dl <5.0 mg/dl
BMI <18.5 <17 <16
Use of terms such as suspected, likely, concern for, or probable (associated with a specific diagnosis that is being evaluated, monitored, or treated as if it exists) are acceptable and can be coded in the inpatient setting, when documented at the
time of discharge.
Thank you,
Mica Garcia RN, BSN
CDI Specialist
tiger text
Please use your independent medical judgment in providing your response.
--- NOTE | 2023-04-03 20:00 | PTCARENOTE ---
Pt received awake alert and oriented but forgetful. Cardizem drip remains on with heart rate 80s. Assessment as charted. Will continue to monitor.
[2023-04-03] MEDS: INDERAL 40 MG PO (20:02)
[2023-04-03] MEDS: LEVAQUIN 150 IV (21:41)
[2023-04-03] MEDS: XALATAN OPHTHALMIC SOLUTION 1 DROP RIGHT EYE (21:42)
[2023-04-04] VITALS (14 sets, daily range): BP systolic 115–154; BP diastolic 67–119; PULSE 100; O2SAT 97; BMI 18.5
[2023-04-04] MEDS: ARMOUR THYROID 60 MG PO (05:05)
--- NOTE | 2023-04-04 05:22 | PTCARENOTE ---
Pt woke up during the night confused and attempted to get OOB. Bed alarm was on and alerted staff. Pt assisted to bathroom and reoriented. Will continue to monitor.
[2023-04-04 05:24] LABS: Hematocrit 35.7 % (37.0-47.0); Hemoglobin 12.3 g/dL (12.0-16.0); Mean Corp Hgb Conc. 34.5 g/dL (33.0-37.0); Mean Corpuscular Hgb 32.4 pg (27.0-31.0); Mean Corpuscular Volume 93.9 fL (81.0-99.0); Mean Platelet Volume 9.4 fL (7.4-10.4); Platelet Count 266 10^3/uL (130-400); Red Cell Dist. Width 12.8 % (11.5-14.5); White Blood Cell Count 7.7 10^3/uL (4.8-10.8)
[2023-04-04 05:38] LABS: Blood Urea Nitrogen 11 mg/dl (7-17); Calcium 9.1 mg/dl (8.4-10.2); Carbon Dioxide 23 mmol/L (22-30); Chloride 104 mmol/L (98-107); Estimated Creatinine Clearance 55 ml/min; Glucose 103 mg/dl (70-99); Potassium 3.5 mmol/L (3.5-5.1); Sodium 135 mmol/L (135-145); eGFR > 60.00
--- NOTE | 2023-04-04 08:05 | W.PN.CARDCBS ---
Today's Communication / Plan
-
Stop IV diltiazem
Continue propranolol
As needed IV diltiazem if rates rise
Continue Eliquis
Check proBNP, neck veins up somewhat
Impression / Plan
-
.
PCP: Dr. Martinez
Cardiology: Dr. Andrews
Impression:
Admitted with TME in the setting of UTI/sepsis
Enterococcus UTI with Sepsis
Permanent atrial fibrillation with rapid ventricular response on admission
Chronic Eliquis anticoagulation
Chronic hyponatremia
Elevated LFTs
Hypothyroidism
GERD
Moderate MR
Mild to moderate AI
History of HFpEF by records, patient denies
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
Echo 04/02/2023:Mild septal hypertrophy, EF 55-60%, mild MR, MAC, mild to moderate aortic regurgitation, mild TR, pulmonary artery systolic pressure 50 mmHg, severely dilated right atrium, aorta is 3.9 cm
Plan:
Permanent A-fib: Heart rate is better controlled, propranolol has been doubled to 40 twice daily. Will transition to propranolol LA 80 mg a day. Continue Eliquis. As needed IV diltiazem if rates rise
UTI/urosepsis: Per hospitalist
Valvular heart disease: MR is less prominent by echo today, aortic regurgitation is stable
Questionable history of HFpEF: proBNP ordered given neck veins and few crackles at bases
TME: Improved
HPI:Patient came to ER yesterday with confusion and was admitted with sepsis and UTI, cardiology is now consulted for permanent A-fib that was rapid on admission. Patient is in the room along with her son and daughter. They report that the
patient had increasing confusion starting as much as 1 week ago. Things became worse yesterday and patient came to ER and was admitted with sepsis and Enterococcus UTI. Patient has a history of permanent A-fib. She has previous cardioversion
11/29/2021 and 11/29/2022, but always recurred with A-fib and there was no symptomatic improvement with pentecostal of sinus rhythm so she was transition to permanent A-fib with rate control. Patient takes short acting propranolol 20 mg twice daily
as an outpatient. Patient takes Eliquis 2.5 mg twice daily as an outpatient for age 87 and weight of 50 kg. Patient was briefly started on Cardizem drip in the ER for rapid A-fib and this morning was given her usual dose of short acting
propranolol 20 mg twice daily plus a dose of short acting Cardizem 30 mg p.o. 4 times daily. The patient then developed hypotension and the short acting Cardizem was stopped. Patient continues to be unaware of palpitations. No chest pain or
shortness of breath.
Progress Note - Security Systems Manager
Subjective
Date of Service: April 04, 2023:
She offers no cardiac complaints at this time. Some focal left abdominal pain 'I think I popped a hernia'
Allergies: Penicillin
Outpatient meds: Eliquis 2.5 mg twice daily, propranolol 20 mg twice daily, thyroid, estrogen,
Inpatient Meds Eliquis 2.5 twice daily, [place] Thyroid, Levaquin, propranolol 40 mg twice daily, diltiazem IV
PMH: Permanent A-fib, moderate MR, mild to moderate AI, hyponatremia, HFpEF, CAD by CT scan, MVP
PSH: Herniorrhaphy, orthopedic, aortic
FH/SH: Reviewed
ROS negative except as above
Hemoglobin 12.3, platelets 266, BUN and creatinine 11 and 0.4, potassium 3.5, no troponin or proBNP during this hospital stay
EKG atrial fibrillation left axis, possible IMI, RSR prime, cannot exclude anterior HI, renal ultrasound okay
Telemetry: Rate controlled on IV diltiazem
Objective
Labs:
04/04/23 05:02
04/04/23 05:02
Labs
Hgb 12.3 g/dL (12.0-16.0) 04/04/23 05:02
Hct 35.7 % (37.0-47.0) L 04/04/23 05:02
Plt Count 266 10^3/uL (130-400) 04/04/23 05:02
Sodium 135 mmol/L (135-145) 04/04/23 05:02
Potassium 3.5 mmol/L (3.5-5.1) 04/04/23 05:02
BUN 11 mg/dl (7-17) 04/04/23 05:02
Creatinine 0.4 mg/dL (0.6-1.0) L 04/04/23 05:02
Glucose 103 mg/dl (70-99) H 04/04/23 05:02
Vital Signs and I&O:
Vital Signs
Temp Pulse Resp BP Pulse Ox
36.5 C 102 19 153/119 96
04/04/23 03:55 04/04/23 06:00 04/04/23 06:00 04/04/23 06:00 04/04/23 04:00
Vital Signs
Temp Pulse Resp BP Pulse Ox
36.5 C 102 19 153/119 96
04/04/23 03:55 04/04/23 06:00 04/04/23 06:00 04/04/23 06:00 04/04/23 04:00
Intake & Output
04/02/23 04/03/23 04/04/23 04/05/23
07:59 07:59 07:59 07:59
Intake Total 960 / 960 2019 430 / 430
Output Total 200 / 200 100 / 100 525 / 525
Balance 760 / 760 1920 / 1920 -95 / -95
Physical Exam
Physical Exam
153/119, 142/89, 125/80, heart rate around 100, 80s respiratory 19, afebrile, sats 96%'s, weight is 51.9 kg, overall stable on admission and was 59 kg last year
Pleasant, fatigued, relatively frail
Head neck exam unremarkable
Lungs with some crackles in bases
Cardiac irregular rate and rhythm, soft MR murmur no obvious AI murmur, rate controlled, JVD approximately 8
Abdomen benign
Extremities without much edema
[2023-04-04] MEDS: SENOKOT-S 1 TABLET PO ×2 (08:28→19:32)
[2023-04-04] MEDS: ELIQUIS 2.5 MG PO ×2 (08:28→19:32)
[2023-04-04] MEDS: KCL 40 MEQ PO (08:28)
[2023-04-04] MEDS: INDERAL 40 MG PO (08:28)
--- NOTE | 2023-04-04 08:36 | W.PN.HOSP.TC ---
Addendum entered and electronically signed by Christelle Bowers MD 04/04/23 14:10:
# Permanent atrial fibrillation
# Moderate Malnutrition
Original Note:
Today's Communication/Plan
-
see A/P
Assessment / Plan
Assessment / Plan
HPI:�87-year-old female past medical history atrial fibrillation on Eliquis, hypothyroidism, p/w weakness, decreased appetite and vomiting.�
Had hallucinations 4 to 5 days ago.� Had low-grade fever DOA.� No urinary symptoms or abdominal pain.�She had urinalysis and urine culture performed by primary care physician on 03/28 which showed Enterococcus. She was started on Macrobid the day
prior to admission.�Patient also in atrial fibrillation with RVR triggered by fever.� Labs show leukocytosis. Urinalysis pending.� Levaquin started.� IV fluids.� Cardizem drip started.
A/P:
# Acute metabolic encephalopathy with visual hallucination (resolved) due to sepsis POA with enterococcus urinary tract infection
Outpt urine culture 03/28 with enterococcus
blood cultures negative
repeat UA this admission improved
Kidney US: Unremarkable sonographic appearance of the kidneys.
Cont IV Levaquin
PT OT recc HH
# Paroxysmal�atrial fib with RVR
Pt has been on and off Cardizem drip, observe off today
cont BUTTON BREAKER Inderal at increased dose 40 mg BID
Echo: EF 55-60%. Diastolic function indeterminate due to atrial fibrillation.�Since echocardiogram November 2021, there is no significant change.
Cont BUTTON BREAKER Eliquis
Cardiology on board for RVR
# Chronic mild hyponatremia, improving
Monitor on IVF
# Elevated transaminase likely reactive
resolved
# Essential tremor
Cont BUTTON BREAKER Propranolol
# Hypothyroidism
thyroid continued
DVT ppx: Eliquis
Code: Full
DW RN
updated on the phone
Anticipated Discharge: Within 24 hours
Subjective/Interval History
-
Date of Service: April 04, 2023
Objective Data
-
Labs:
Laboratory Results
04/04/23
05:02
WBC 7.7
Hgb 12.3
Hct 35.7 L
Plt Count 266
Sodium 135
Potassium 3.5
Chloride 104
Carbon Dioxide 23
BUN 11
Creatinine 0.4 L
Glucose 103 H
Calcium 9.1
Vital Signs:
Vital Signs
Temp Pulse Resp BP Pulse Ox
36.5 C 100 19 137/93 96
04/04/23 03:55 04/04/23 08:00 04/04/23 08:00 04/04/23 08:00 04/04/23 08:00
I&O
04/03/23 04/04/23 04/05/23
06:59 06:59 06:59
Intake Total 2019 430 / 430
Output Total 200 / 200 525 / 525
Balance 1820 / 1820 -95 / -95
Review of Systems
-
All other systems: Reviewed and negative
Constitutional: Reports Weakness
Physical Exam
-
General: Well Developed, Comfortable, Conversant and Appears Chronically Ill
HEENT: Normocephalic and Atraumatic
Respiratory: Clear to Auscultation and Non Labored Respirations; Negative Accessory Resp Muscle Use
Cardiac: S1/S2, Irregular Rhythm and Tachycardic
GI: Soft, Nontender and Nondistended
Neuro: Awake
Psych: Calm and Intact Judgement/Insight
Data Reviewed
-
Labs: Labs Reviewed by me
[2023-04-04 09:35] LABS: Magnesium 1.6 mg/dl (1.6-2.3)
--- NOTE | 2023-04-04 09:45 | PTCARENOTE ---
Cardizem discontinued as per cardiology. New orders obtained.
[2023-04-04] MEDS: INDERAL LA 80 MG PO (14:16)
--- NOTE | 2023-04-04 14:46 | PTCARENOTE ---
Patient out of bed to chair and uses commode or bathroom with assistance x1 and rolling walker. Patient still has intermittent confusion. Family in room at bedside.
[2023-04-04] MEDS: MAGNESIUM SULFATE 50 IV (14:50)
[2023-04-04] MEDS: FLUSH (NSS) 1 FLUSH IV (14:54)
--- NOTE | 2023-04-04 17:01 | CM ---
Patient with Dx sepsis, UTI, Paroxysmal�atrial fib. Room air. Receiving IV Levaquin. Per nurse; patient still has intermittent confusion. PT & OT recommend HH.
Plan home with [facility].
[2023-04-04] MEDS: LEVAQUIN 150 IV (21:31)
[2023-04-04] MEDS: XALATAN OPHTHALMIC SOLUTION 1 DROP RIGHT EYE (21:32)
[2023-04-04] MEDS: TYLENOL 650 MG PO (23:37)
[2023-04-04] MEDS: MELATONIN 5 MG PO (23:37)
[2023-04-05] VITALS (9 sets, daily range): BP systolic 80–149; BP diastolic 62–112; BMI 18.4
[2023-04-05 04:36] LABS: Hemoglobin 12.5 g/dL (12.0-16.0); Mean Corp Hgb Conc. 34.7 g/dL (33.0-37.0); Mean Corpuscular Hgb 32.2 pg (27.0-31.0); Mean Corpuscular Volume 92.8 fL (81.0-99.0); Mean Platelet Volume 9.4 fL (7.4-10.4); Platelet Count 277 10^3/uL (130-400); Red Blood Cell Count 3.88 10^6/uL (4.20-5.40); Red Cell Dist. Width 12.6 % (11.5-14.5); White Blood Cell Count 7.4 10^3/uL (4.8-10.8)
[2023-04-05 05:01] LABS: Blood Urea Nitrogen 12 mg/dl (7-17); Calcium 8.8 mg/dl (8.4-10.2); Carbon Dioxide 23 mmol/L (22-30); Chloride 105 mmol/L (98-107); Estimated Creatinine Clearance 55 ml/min; Glucose 103 mg/dl (70-99); Magnesium 1.8 mg/dl (1.6-2.3); Potassium 4.1 mmol/L (3.5-5.1); Sodium 132 mmol/L (135-145); eGFR > 60.00
[2023-04-05 05:07] LABS: NT-proBNP 5740 pg/ml
--- NOTE | 2023-04-05 05:12 | PTCARENOTE ---
Pt remains confused and forgetful. Easily redirectable. Pleasant and cooperative. Bed alarm on for safety. Pt having trouble sleeping. Discussed with anthony HOGAN. Pt med with melatonin and did sleep for several hours thereafter.
[2023-04-05] MEDS: ARMOUR THYROID 60 MG PO (06:04)
--- NOTE | 2023-04-05 07:42 | W.PN.CARDCBS ---
Today's Communication / Plan
-
Remains rate controlled in perm afib with controlled rate.
Cont Propanolol LA 80 mg daily
Cont Eliquis
Echo with preserved EF with stable MR and AR
She appears euvolemic.
Outpt cardiac follow up with Dr Andrews
Discussed with primary service and nursing.
Impression / Plan
-
.
PCP: Dr. Martinez
Cardiology: Dr. Andrews
Impression:
Admitted with TME in the setting of UTI/sepsis
Enterococcus UTI with Sepsis
Permanent atrial fibrillation with rapid ventricular response on admission
Chronic Eliquis anticoagulation
Chronic hyponatremia
Elevated LFTs
Hypothyroidism
GERD
Moderate MR
Mild to moderate AI
History of HFpEF by records, patient denies
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
Echo 04/02/2023:Mild septal hypertrophy, EF 55-60%, mild MR, MAC, mild to moderate aortic regurgitation, mild TR, pulmonary artery systolic pressure 50 mmHg, severely dilated right atrium, aorta is 3.9 cm
Plan:
Remains rate controlled in perm afib with controlled rate.
Cont Propanolol LA 80 mg daily
Cont Eliquis
Echo with preserved EF with stable MR and AR
She appears euvolemic.
Outpt cardiac follow up with Dr Andrews
Discussed with primary service.
HPI:Patient came to ER yesterday with confusion and was admitted with sepsis and UTI, cardiology is now consulted for permanent A-fib that was rapid on admission. Patient is in the room along with her son and daughter. They report that the
patient had increasing confusion starting as much as 1 week ago. Things became worse yesterday and patient came to ER and was admitted with sepsis and Enterococcus UTI. Patient has a history of permanent A-fib. She has previous cardioversion
11/29/2021 and 11/29/2022, but always recurred with A-fib and there was no symptomatic improvement with adventist of sinus rhythm so she was transition to permanent A-fib with rate control. Patient takes short acting propranolol 20 mg twice daily
as an outpatient. Patient takes Eliquis 2.5 mg twice daily as an outpatient for age 87 and weight of 50 kg. Patient was briefly started on Cardizem drip in the ER for rapid A-fib and this morning was given her usual dose of short acting
propranolol 20 mg twice daily plus a dose of short acting Cardizem 30 mg p.o. 4 times daily. The patient then developed hypotension and the short acting Cardizem was stopped. Patient continues to be unaware of palpitations. No chest pain or
shortness of breath.
Progress Note - Hemodialysis Lab Technician
Subjective
Date of Service: April 05, 2023
Pt seen and examined. No complaints. No chest pain or shortness of breath.
Objective
Labs:
04/05/23 04:22
04/05/23 04:22
Labs
Hgb 12.5 g/dL (12.0-16.0) 04/05/23 04:22
Hct 36.0 % (37.0-47.0) L 04/05/23 04:22
Plt Count 277 10^3/uL (130-400) 04/05/23 04:22
Sodium 132 mmol/L (135-145) L 04/05/23 04:22
Potassium 4.1 mmol/L (3.5-5.1) 04/05/23 04:22
BUN 12 mg/dl (7-17) 04/05/23 04:22
Creatinine 0.4 mg/dL (0.6-1.0) L 04/05/23 04:22
Glucose 103 mg/dl (70-99) H 04/05/23 04:22
Vital Signs and I&O:
Vital Signs
Temp Pulse Resp BP Pulse Ox
97.8 F 107 22 149/112 96
04/05/23 04:00 04/05/23 06:00 04/05/23 06:00 04/05/23 06:00 04/05/23 04:00
Vital Signs
Temp Pulse Resp BP Pulse Ox
97.8 F 107 22 149/112 96
04/05/23 04:00 04/05/23 06:00 04/05/23 06:00 04/05/23 06:00 04/05/23 04:00
Intake & Output
04/03/23 04/04/23 04/05/23 04/06/23
06:59 06:59 06:59 06:59
Intake Total 2020 / 2020 430 / 430 1205 / 1205
Output Total 200 / 200 525 / 525 700 / 700
Balance 1820 / 1820 -95 / -95 505 / 505
Physical Exam
Physical Exam
General: No acute distress, AAOX3
Neck: Negative JVD
Heart: Irregularly irregular, Negative S3 positive S1/S2, Negative S4, No murmur
Lungs: CTA b/l, negative wheezes/rales/rhonchi
Abd: Positive BS, NT/ND, neg rebound/rigidity/guarding
Ext: Negative cyanosis/clubbing/edema
Neuro: nonfocal
[2023-04-05] MEDS: SENOKOT-S 1 TABLET PO (07:58)
[2023-04-05] MEDS: ELIQUIS 2.5 MG PO (07:58)
[2023-04-05] MEDS: INDERAL LA 80 MG PO (07:59)
--- NOTE | 2023-04-05 09:23 | W.PN.HOSP.TC ---
Addendum entered and electronically signed by Christelle Bowers MD 04/05/23 15:14:
total DC time 35 min
Original Note:
Today's Communication/Plan
-
see A/P
Assessment / Plan
Assessment / Plan
HPI:�87-year-old female past medical history atrial fibrillation on Eliquis, hypothyroidism, p/w weakness, decreased appetite and vomiting.�
Had hallucinations 4 to 5 days ago.� Had low-grade fever DOA.� No urinary symptoms or abdominal pain.�She had urinalysis and urine culture performed by primary care physician on 03/28 which showed Enterococcus. She was started on Macrobid the day
prior to admission.�Patient also in atrial fibrillation with RVR triggered by fever.� Labs show leukocytosis. Urinalysis pending.� Levaquin started.� IV fluids.� Cardizem drip started.
A/P:
# Acute metabolic encephalopathy with visual hallucination (resolved) due to sepsis POA with enterococcus urinary tract infection
Outpt urine culture 03/28 with enterococcus
blood cultures negative
repeat UA this admission improved
Kidney US: Unremarkable sonographic appearance of the kidneys.
IV Levaquin -> PO Levaquin for 1 more day (total 5 days)
PT OT recc HH
# Paroxysmal�atrial fib with RVR
Off Cardizem drip
cont [employer] Inderal 40 mg BID to 80 mg daily (from 20 BID [employer]ATOR)
Echo: EF 55-60%. Diastolic function indeterminate due to atrial fibrillation.�Since echocardiogram November 2021, there is no significant change.
Cont [employer] Eliquis
Cardiology on board for RVR
# Chronic mild hyponatremia, improving
Monitor on IVF
# Elevated transaminase likely reactive
resolved
# Essential tremor
Cont [employer]ATOR Propranolol
# Hypothyroidism
thyroid continued
DVT ppx: Eliquis
Code: Full
DW Card, cleared for discharge from their stand point
updated on the phone
Anticipated Discharge: Today
Subjective/Interval History
-
Date of Service: April 05, 2023
Objective Data
-
Labs:
Laboratory Results
04/05/23
04:22
WBC 7.4
Hgb 12.5
Hct 36.0 L
Plt Count 277
Sodium 132 L
Potassium 4.1
Chloride 105
Carbon Dioxide 23
BUN 12
Creatinine 0.4 L
Glucose 103 H
Calcium 8.8
Vital Signs:
Vital Signs
Temp Pulse Resp BP Pulse Ox
36.5 C 105 22 141/93 96
04/05/23 07:15 04/05/23 07:59 04/05/23 06:00 04/05/23 07:59 04/05/23 04:00
I&O
04/04/23 04/05/23 04/06/23
06:59 06:59 06:59
Intake Total 430 / 430 1205 / 1205
Output Total 525 / 525 700 / 700
Balance -95 / -95 505 / 505
Review of Systems
-
All other systems: Reviewed and negative
Physical Exam
-
General: Well Developed, Comfortable, Conversant and Appears Chronically Ill
HEENT: Normocephalic and Atraumatic
Respiratory: Clear to Auscultation and Non Labored Respirations; Negative Accessory Resp Muscle Use
Cardiac: S1/S2
GI: Soft, Nontender and Nondistended
Neuro: Awake
Psych: Calm and Intact Judgement/Insight
Data Reviewed
-
Labs: Labs Reviewed by me
--- NOTE | 2023-04-05 10:16 | CM ---
Reviewed the chart notes and spoke with the patient's spouse via telephone. Patient is discharged today to home with [facility]. Spouse will provide transportation. CM continues to be available to patient/family and is monitoring medical plan
for needs at discharge.
Plan: Discharge today to home on [facility].
--- NOTE | 2023-04-05 12:50 | PTCARENOTE ---
assumed care of pt this morning and she was 'hearing and seeing things that were not there' alert and oriented x 3. Knows she is in [facility] but unsure of all details. She then begins to recall that she was here due to UTI and that her
brought her to hospital. Pt a-fib on monitor in 90s. Pt swallowing meds without difficulty. she is frail and weak but ambulates with cautions using wheeled walker. Voiding in Bathroom, urine clear and without odor. here to review
discharge instructions with staff and patient. He has good understanding of written instructions and patient is no longer hallucinating and verbalizes basic discharge plan. Reenforce importance of spouse to assist in administering meds to assure pt
is taking correct doses. TO POV without event.
--- NOTE | 2023-04-05 15:02 | W.DCSUMMARY ---
Discharge Summary
Discharge Data
Date of Admission: 04/01/23
Date of Discharge: 04/05/23
-
Pending Results: No
Hospital Course
Principal Diagnosis:
Acute metabolic encephalopathy with visual hallucination (resolved) due to Enterococcus urinary tract infection
Paroxysmal�atrial fibrillation with initial rapid rate which has subsequently resolved
Chronic Diagnoses:�
Chronic mild hyponatremia
Essential tremor on Propranolol
Hypothyroidism
Consultations:�
Cardiology
Procedures:�
None
Clinical course:�
This is a 87-year-old female with past medical history as stated above, who presented with weakness, decreased appetite, visual hallucinations and low-grade fever.
She had urinalysis and urine culture performed by her primary care physician on 03/28 which showed Enterococcus. She was started on Macrobid outpatient.
Problem 1:
Acute metabolic encephalopathy with visual hallucination (resolved) due to sepsis POA with enterococcus urinary tract infection.
Her repeat UA this admission has improved, and her blood cultures were negative.
Her Kidney US showed unremarkable sonographic appearance of the kidneys.
She was treated with IV Levaquin and was discharged with oral Levaquin for 1 more day (total 5 days).
Problem 2:
Paroxysmal�atrial fibrillation with initial rapid rate which has subsequently resolved.
At one point she was receiving Cardizem drip for rate control; this was subsequently weaned off and her prior to admission Inderal was increased from 20 mg twice daily to 80 mg daily which she should continue going forward.
Her Echo was unrevealing: EF 55-60%. Diastolic function indeterminate due to atrial fibrillation.�Since echocardiogram November 2021, there is no significant change.
She can continue with her [employer]OR Eliquis.
As for the rest of her medical problems, they were stable during her hospital stay.
Discharge Plan
-
Patient Disposition: Home with Home Care
Discharge Diagnosis/Procedures: Acute metabolic encephalopathy with visual hallucination (resolved) due to enterococcus urinary tract infection; Paroxysmal atrial fibrillation with resolved rapid rate
Condition: Fair
Diet: As tolerated
Activity: As tolerated
Driving Restrictions: As prior to admission
Activity Restrictions/Additional Instructions:
Take Inderal now at 80 mg daily (from 20 twice daily previously)
Take oral antibiotic Levaquin for 1 more day
Referrals:
Ben Martinez, DO [Family Provider] - in less than 1 week
Prescriptions:
New
propranolol 80 mg Capsule,Extended Release 24hr
80 mg PO DAILY Qty: 30 0RF
levofloxacin 750 mg tablet
750 mg PO DAILY 1 Days Qty: 1 0RF
Continued
multivitamin Tablet
1 tab PO DAILY
ascorbic acid (vitamin C) [Vitamin C] 500 mg Tablet
500 mg PO DAILY
lutein 20 mg Capsule
20 mg PO DAILY
cholecalciferol (vitamin D3) [Vitamin D3] 25 mcg (1,000 unit) Tablet
1,000 mcg PO QPM
latanoprost 0.005 % Drops
1 drp RIGHT EYE HS
thyroid (pork) 65 mg Tablet
65 mg PO DAILY
Tri-Est 1.25mg/Progesterine 50
1 cap PO DAILY
Eliquis 2.5 mg Tablet
2.5 mg PO BID Qty: 60 0RF
Discontinued
propranolol 20 mg Tablet
20 mg PO BID
Discharge Orders:
Discharge Patient (As Directed); Ordered 04/05/23
Ordered By: Christelle Bowers
Discharge Date and Time
Discharge Date/Time: 04/05/23 12:21
== END 2023-04-05 12:21 | disposition home health service (06) | DRG 871 ==
LOC: IMU 23:20
PROVIDERS: Internal Medicine Cardiovascular Disease; Registered Nurse; ADMITTING PHYSICIAN Hospitalist; ATTENDING PHYSICIAN Internal Medicine; EMERGENCY PHYSICIAN Emergency Medicine; FAMILY PHYSICIAN Internal Medicine; OTHER PHYSICIAN Internal Medicine Interventional Cardiology
DX: A41.81 Sepsis due to Enterococcus (principal); G93.41 Metabolic encephalopathy; N39.0 Urinary tract infection, site not specified; I48.21 Permanent atrial fibrillation; E87.1 Hypo-osmolality and hyponatremia; E44.0 Moderate protein-calorie malnutrition; Z68.1 Body mass index [BMI] 19.9 or less, adult; R11.10 Vomiting, unspecified; E05.90 Thyrotoxicosis, unspecified without thyrotoxic crisis or storm; E03.9 Hypothyroidism, unspecified; R74.01 Elevation of levels of liver transaminase levels; I08.0 Rheumatic disorders of both mitral and aortic valves; G25.0 Essential tremor; I95.9 Hypotension, unspecified; K21.9 Gastro-esophageal reflux disease without esophagitis; E86.0 Dehydration; R44.1 Visual hallucinations; Z88.0 Allergy status to penicillin; Z91.040 Latex allergy status; Z79.01 Long term (current) use of anticoagulants; Z11.52 Encounter for screening for COVID-19
CPT/HCPCS: 76775; 80048; 80053; 81003; 82248; 83605; 83735; 83880; 84443; 85025; 85027; 87040; 87502; 87811; 93005; 93306; 96361; 96374; 96375; 97116; 97162; 97167; 99285

== ENCOUNTER → 2023-05-29 12:58 | Outpatient (REF) | payer MEDICARE, OTHER, SELFPAY | LOC: HWRAD 12:58 | PROVIDERS: ATTENDING PHYSICIAN Obstetrics & Gynecology Gynecology; FAMILY PHYSICIAN Internal Medicine; REFERRING PHYSICIAN Urology | DX: N83.209 Unspecified ovarian cyst, unspecified side (principal); N39.0 Urinary tract infection, site not specified; N32.81 Overactive bladder; N95.2 Postmenopausal atrophic vaginitis | CPT/HCPCS: 76856; 76857 ==

== ENCOUNTER 2023-06-10 12:04 | Outpatient (RCR) | payer MEDICARE, OTHER, SELFPAY | END 2023-06-10 23:59 | disposition home or self-care (01) | LOC: RPT 12:04 | PROVIDERS: ATTENDING PHYSICIAN Internal Medicine | DX: R53.81 Other malaise (principal); Z73.6 Limitation of activities due to disability | CPT/HCPCS: 97110; 97162; 97530 ==

== ENCOUNTER 2023-07-02 13:00 | Outpatient (RCR) | payer MEDICARE, OTHER, SELFPAY | END 2023-07-02 23:59 | disposition home or self-care (01) | LOC: RPT 13:00 | PROVIDERS: ATTENDING PHYSICIAN Internal Medicine | DX: R53.81 Other malaise (principal); R26.2 Difficulty in walking, not elsewhere classified; Z73.6 Limitation of activities due to disability | CPT/HCPCS: 97110; 97112; 97116 ==

== ENCOUNTER 2023-07-08 14:13 | Emergency (ER) | payer MEDICARE, OTHER, SELFPAY ==
[2023-07-08 14:28] VITALS: BP 121/84
[2023-07-08 15:13] LABS: % Eosinophils 1.7 % (0-6); % Immature Granulocytes 0.5 % (0-0.5); % Lymphocytes 15.3 % (20.5-51.1); % Neutrophils 69.5 % (42.2-75.2); Absolute Basophils 0.1 10^3/uL (0-0.2); Absolute Eosinophils 0.2 10^3/uL (0-0.7); Absolute Lymphocytes 1.4 10^3/uL (1.2-3.4); Absolute Monocytes 1.1 10^3/uL (0.1-0.6); Absolute Neutrophils 6.1 10^3/uL (1.4-6.5); Hematocrit 39.5 % (37.0-47.0); Hemoglobin 13.2 g/dL (12.0-16.0); Mean Corp Hgb Conc. 33.4 g/dL (33.0-37.0); Mean Corpuscular Hgb 32.3 pg (27.0-31.0); Mean Corpuscular Volume 96.6 fL (81.0-99.0); Mean Platelet Volume 10.4 fL (7.4-10.4); Nucleated Red Blood Cells % 0 %; Platelet Count 196 10^3/uL (130-400); Red Blood Cell Count 4.09 10^6/uL (4.20-5.40); Red Cell Dist. Width 13.4 % (11.5-14.5); White Blood Cell Count 8.8 10^3/uL (4.8-10.8)
[2023-07-08 15:38] LABS: ALT (SGPT) 20 U/L (0-35); AST (SGOT) 26 U/L (14-36); Albumin 3.5 g/dl (3.5-5.0); Alkaline Phosphatase 56 U/L (38-126); Blood Urea Nitrogen 19 mg/dl (7-17); Calcium 9.7 mg/dl (8.4-10.2); Carbon Dioxide 25 mmol/L (22-30); Chloride 102 mmol/L (98-107); Glucose 94 mg/dl (70-99); Potassium 4.2 mmol/L (3.5-5.1); Sodium 133 mmol/L (135-145); Total Bilirubin 0.9 mg/dl (0.2-1.3); Total Protein 5.9 g/dl (6.3-8.2); eGFR > 60.00
[2023-07-08 15:39] LABS: Troponin I < 0.012 ng/ml
== END 2023-07-08 16:53 ==
LOC: EMR 14:13
PROVIDERS: Emergency Medicine
DX: R07.89 Other chest pain (principal); M54.9 Dorsalgia, unspecified; Z53.21 Procedure and treatment not carried out due to patient leaving prior to being seen by health care provider
CPT/HCPCS: 99281; 80053; 84484; 85025; 93005

== ENCOUNTER → 2023-07-29 13:27 | Outpatient (REF) | payer MEDICARE, OTHER, SELFPAY ==
[2023-07-29 16:08] LABS: Urine Albumin Trace (Neg - Trace); Urine Bilirubin 1+ (Negative); Urine Character Clear (Clear); Urine Color Yellow; Urine Glucose Negative (Negative); Urine Ketone Trace (Negative); Urine Leukocyte Trace (Negative); Urine Nitrite Negative (Negative); Urine Occult Blood Negative (Negative); Urine Urobilinogen 1+ (Neg - 1+); Urine pH 6.5 (5.0-9.0)
[2023-07-29 16:16] LABS: Urine Bacteria Moderate (Negative); Urine Hyaline Cast >15 /LPF (0-2); Urine Red Blood Cell 0-2 /HPF (0-2); Urine White Cell 0-2 /HPF (0-5)
== END ==
LOC: REG 13:27
PROVIDERS: ATTENDING PHYSICIAN Urology; FAMILY PHYSICIAN Internal Medicine
DX: N39.0 Urinary tract infection, site not specified (principal)
CPT/HCPCS: 81003; 81015; 87086

== ENCOUNTER 2023-08-05 14:08 | Outpatient (RCR) | payer MEDICARE, OTHER, SELFPAY | END 2023-08-05 23:59 | disposition home or self-care (01) | LOC: RPT 14:08 | PROVIDERS: ATTENDING PHYSICIAN Internal Medicine | DX: R53.81 Other malaise (principal); Z73.6 Limitation of activities due to disability; R26.2 Difficulty in walking, not elsewhere classified; M62.81 Muscle weakness (generalized) | CPT/HCPCS: 97110; 97530 ==

== ENCOUNTER 2023-09-02 14:14 | Outpatient (RCR) | payer MEDICARE, OTHER, SELFPAY | END 2023-09-02 23:59 | disposition home or self-care (01) | LOC: RPT 14:14 | PROVIDERS: ATTENDING PHYSICIAN Internal Medicine | DX: R53.81 Other malaise (principal); Z73.6 Limitation of activities due to disability; R26.2 Difficulty in walking, not elsewhere classified | CPT/HCPCS: 97110; 97112; 97116; 97530 ==

== ENCOUNTER 2023-09-25 13:42 | Outpatient (RCR) | payer MEDICARE, OTHER, SELFPAY | END 2023-09-25 23:59 | disposition home or self-care (01) | LOC: RPT 13:42 | PROVIDERS: ATTENDING PHYSICIAN Internal Medicine | DX: R53.81 Other malaise (principal); Z73.6 Limitation of activities due to disability | CPT/HCPCS: 97110 ==

== ENCOUNTER → 2023-10-29 15:34 | Outpatient (REF) | payer MEDICARE, OTHER, SELFPAY ==
[2023-10-29 17:29] LABS: Urine Albumin Negative (Neg - Trace); Urine Bilirubin Negative (Negative); Urine Character Clear (Clear); Urine Color Yellow; Urine Glucose Negative (Negative); Urine Ketone Negative (Negative); Urine Leukocyte Negative (Negative); Urine Nitrite Negative (Negative); Urine Occult Blood Negative (Negative); Urine Urobilinogen Negative (Neg - 1+)
== END ==
LOC: REG 15:34
PROVIDERS: ATTENDING PHYSICIAN Internal Medicine
DX: R39.9 Unspecified symptoms and signs involving the genitourinary system (principal)
CPT/HCPCS: 81003; 87086

== ENCOUNTER 2024-03-05 06:23 | Day surgery (SDC) | payer MEDICARE, OTHER, SELFPAY ==
[2024-03-05] VITALS (9 sets, daily range): BP systolic 129–146; BP diastolic 79–102; BMI 17.0
[2024-03-05] MEDS: TYLENOL 1000 MG PO (13:55)
[2024-03-05] MEDS: NORMOSOL-R/PLASMALYTE-A 1000 IV (13:55)
== END 2024-03-05 17:47 | disposition home or self-care (01) ==
LOC: SDS 06:23
PROVIDERS: ATTENDING PHYSICIAN Student in an Organized Health Care Education/Training Program
DX: S90.32XA Contusion of left foot, initial encounter (principal); W20.8XXA Other cause of strike by thrown, projected or falling object, initial encounter
CPT/HCPCS: 10140; 87070; 87075; 87205

== ENCOUNTER 2024-03-06 12:45 | Emergency (ER) | payer MEDICARE, OTHER, SELFPAY ==
[2024-03-06 12:54] VITALS: BP 130/99
[2024-03-06 15:09] VITALS: BP 118/74
--- NOTE | 2024-03-06 15:50 | ED.GENMED ---
History of Present Illness
General
Chief Complaint: Wound Check/Suture Removal
Source: patient and family
Exam Limitations: none
Time Seen by Provider: 03/06/24 14:50
Nursing documentation reviewed up to this point in time: agreed with
History of Present Illness
History of Present Illness:
88-year-old female presenting to the emergency department today with concerns of some bleeding from recent surgical incision to the left foot where she had a hematoma after dropping something on her foot last week. This was drained by Dr. Gupta
yesterday. Noted some additional bleeding this morning. No hemorrhage no lightheadedness no additional symptoms otherwise.
Past History
Past History
ED Past Medical History: Arrthythmia (afib on eliquis) and Hyperthyroidism
ED Past Surgical History: Cardiac and Orthopedic
Review of Systems
Review of Systems
Allergies reviewed?: Yes
All Other Systems: ROS reviewed and negative except as documented in HPI and ROS
Phy Exam
Physical Exam
Physical Exam:
GENERAL: Alert , in no apparent distress
EYE: pupils equal and reactive
NECK: Supple, no significant adenopathy.
ENT: o/p clr, mmm.
CARDIAC: Regular rate and rhythm .
LUNGS: Clear breath sounds bilaterally, no acute respiratory distress, no wheezes/rales/rhonchi
ABDOMEN: Soft, without focal tenderness, no r/g, no cvat
NEUROLOGICAL: Alert and oriented, no focal neuro deficits
SKIN: Purple discoloration to the left dorsum of the foot there is an incision roughly 3 cm in total length for stitches in place no active bleeding no significant tenderness no fluctuance or induration surrounding normal normal dorsalis pedis and
posterior tibialis pulses warm and dry, skin intact.
MUSCULOSKELETAL: No edema, well perfused.
PSYCH: Normal and appropriate interaction.
Course
Vital Signs
Initial and Last Documented VS:
Initial Vital Signs
Temp Pulse Resp BP Pulse Ox
97.6 F 110 18 130/99 96
01/25/25 12:54 03/06/24 12:54 03/06/24 12:54 03/06/24 12:54 03/06/24 12:54
Last Documented Vital Signs
Temp Pulse Resp BP Pulse Ox
97.6 F 89 16 118/74 98
03/06/24 12:54 03/06/24 15:09 03/06/24 15:09 03/06/24 15:09 03/06/24 15:09
MDM/Problems Addressed
MDM/Problems Addressed:
88-year-old female presenting to the emergency department 1 day after hematoma drainage of her left foot. Here she is well-appearing in no distress no active bleeding Case discussed with patient surgeon. This was rewrapped otherwise will follow-up
in 2 days in the office. Return precautions given.
*Critical Care Note
Total Time (30-74mins, 75-104mins- exclusive of procedures): Not Applicable
ED Attending Note
-
Portions of this chart may have been created with voice recognition software.� Occasional wrong word or��sound alike� substitutions may have occurred due to the inherent limitations of voice recognition software.
Discharge Plan
Departure
Patient Disposition: Home (Routine Discharge)
Date of Disposition: 03/06/24
Time of Disposition: 15:51
Patient with high blood pressure during this ER visit?: No
Condition: Good
Covid-19: Not Applicable
Discharge Problem:
Postoperative bleeding from incision
Instructions: Wound Care (DC)
Prescriptions:
No Action
multivitamin Tablet
1 tab PO DAILY
ascorbic acid (vitamin C) [Vitamin C] 500 mg Tablet
500 mg PO DAILY
lutein 20 mg Capsule
20 mg PO DAILY
latanoprost 0.005 % Drops
1 drp RIGHT EYE HS
thyroid (pork) 65 mg Tablet
65 mg PO DAILY
vitamin D3-vitamin K2 25 mcg (1,000 unit)-90 mcg Tablet,Disintegrating
1 tab PO DAILY
cyanocobalamin (vitamin B-12) 1,000 mcg/mL Drops
1 ml PO DAILY
propranolol 80 mg capsule,extended release 24 hr
20 mg PO BID
Eliquis 2.5 mg Tablet
2.5 mg PO BID Qty: 60 0RF
Referrals:
Ben Martinez, DO [Family Provider] -
Activity Restrictions/Additional Instructions:
You came to the emergency department with concerns of complications to your surgical incision. Here this was rewrapped please follow-up closely with your surgeon in 2 days. Return for any worsening, new or concerning symptoms.
Interventions
Interventions:
*Risk Screen - Suicide Last Done: 03/06/24 12:54
*General Assessment Last Done: 03/06/24 12:54
*Neglect/Abuse Screening Last Done: 03/06/24 12:54
ED- Fall Risk Assessment Last Done: 03/06/24 15:07
*Nursing Disposition Last Done: 03/06/24 15:58
ED-Skin Assessment Last Done: 03/06/24 15:07
Discharge Date and Time
Print Language: MALAY
== END 2024-03-06 16:05 | disposition home or self-care (01) ==
LOC: EMR 12:45
PROVIDERS: EMERGENCY PHYSICIAN Student in an Organized Health Care Education/Training Program; FAMILY PHYSICIAN Internal Medicine
DX: L76.22 Postprocedural hemorrhage of skin and subcutaneous tissue following other procedure (principal); Y83.8 Other surgical procedures as the cause of abnormal reaction of the patient, or of later complication, without mention of misadventure at the time of the procedure; I48.91 Unspecified atrial fibrillation; Z79.01 Long term (current) use of anticoagulants
CPT/HCPCS: 99282

== ENCOUNTER 2024-07-19 11:36 | Outpatient (RCR) | payer MEDICARE, OTHER, SELFPAY | END 2024-07-19 23:59 | disposition home or self-care (01) | LOC: RPT 11:36 | PROVIDERS: ATTENDING PHYSICIAN Internal Medicine | DX: R53.81 Other malaise (principal); Z73.6 Limitation of activities due to disability; R26.2 Difficulty in walking, not elsewhere classified; M62.81 Muscle weakness (generalized); R26.89 Other abnormalities of gait and mobility | CPT/HCPCS: 97162; 97530 ==

== ENCOUNTER 2024-08-24 13:47 | Outpatient (RCR) | payer MEDICARE, OTHER, SELFPAY | END 2024-08-24 23:59 | disposition home or self-care (01) | LOC: RPT 13:47 | PROVIDERS: ATTENDING PHYSICIAN Internal Medicine | DX: R53.81 Other malaise (principal); Z73.6 Limitation of activities due to disability; R26.2 Difficulty in walking, not elsewhere classified; M62.81 Muscle weakness (generalized); R26.89 Other abnormalities of gait and mobility; Z91.81 History of falling | CPT/HCPCS: 97110; 97530 ==

== ENCOUNTER → 2024-09-01 11:27 | Outpatient (REF) | payer MEDICARE, OTHER, SELFPAY ==
[2024-09-01 12:16] LABS: Hematocrit 41.7 % (37.0-47.0); Hemoglobin 13.6 g/dL (12.0-16.0); Mean Corp Hgb Conc. 32.6 g/dL (33.0-37.0); Mean Corpuscular Volume 96.5 fL (81.0-99.0); Nucleated Red Blood Cells % 0 %; Platelet Count 281 10^3/uL (130-400); Red Cell Dist. Width 13.8 % (11.5-14.5)
[2024-09-01 12:51] LABS: ALT (SGPT) 12 U/L (0-35); AST (SGOT) 18 U/L (14-36); Albumin 3.8 g/dl (3.5-5.0); Alkaline Phosphatase 51 U/L (38-126); Blood Urea Nitrogen 14 mg/dl (7-17); Calcium 9.8 mg/dl (8.4-10.2); Carbon Dioxide 29 mmol/L (22-30); Chloride 101 mmol/L (98-107); Glucose 103 mg/dl (70-99); HDL Cholesterol 61 mg/dl; LDL Cholesterol, Calculated 98 mg/dl; Potassium 4.2 mmol/L (3.5-5.1); Sodium 135 mmol/L (135-145); Total Protein 6.4 g/dl (6.3-8.2); Very Low Density Lipoprotein 16 mg/dl (0-30); eGFR > 60.00
[2024-09-01 13:24] LABS: TSH 3.18 uIU/ml (0.47-4.68)
[2024-09-01 15:48] LABS: Urine Character Clear (Clear)
[2024-09-01 15:59] LABS: Urine Red Blood Cell 0-2 /HPF (0-2)
== END ==
LOC: REG 11:27
PROVIDERS: ATTENDING PHYSICIAN Internal Medicine
DX: R41.0 Disorientation, unspecified (principal); R41.82 Altered mental status, unspecified; R26.89 Other abnormalities of gait and mobility; G93.32 Myalgic encephalomyelitis/chronic fatigue syndrome; I48.0 Paroxysmal atrial fibrillation; I27.20 Pulmonary hypertension, unspecified; Z79.899 Other long term (current) drug therapy
CPT/HCPCS: 36415; 80053; 80061; 81003; 81015; 84439; 84443; 85025

== ENCOUNTER 2024-09-27 15:08 | Outpatient (RCR) | payer MEDICARE, OTHER, SELFPAY | END 2024-09-27 23:59 | disposition home or self-care (01) | LOC: RPT 15:08 | PROVIDERS: ATTENDING PHYSICIAN Internal Medicine | DX: R26.2 Difficulty in walking, not elsewhere classified (principal); R53.81 Other malaise; Z73.6 Limitation of activities due to disability; M62.81 Muscle weakness (generalized); R26.89 Other abnormalities of gait and mobility; Z91.81 History of falling | CPT/HCPCS: 97110; 97530 ==

== ENCOUNTER → 2024-10-19 14:40 | Outpatient (REF) | payer MEDICARE, OTHER, SELFPAY | LOC: RAD 14:40 | PROVIDERS: ATTENDING PHYSICIAN Internal Medicine; REFERRING PHYSICIAN Urology | DX: N94.89 Other specified conditions associated with female genital organs and menstrual cycle (principal) | CPT/HCPCS: 76856 ==

== ENCOUNTER 2024-11-01 14:54 | Outpatient (RCR) | payer MEDICARE, OTHER, SELFPAY | END 2024-11-02 14:29 | disposition home or self-care (01) | LOC: RPT 14:54 | PROVIDERS: ATTENDING PHYSICIAN Internal Medicine | DX: R26.2 Difficulty in walking, not elsewhere classified (principal); R53.81 Other malaise; Z73.6 Limitation of activities due to disability; M62.81 Muscle weakness (generalized); R26.89 Other abnormalities of gait and mobility; Z91.81 History of falling | CPT/HCPCS: 97110; 97116 ==

== ENCOUNTER 2024-11-20 18:55 | Emergency (ER) | payer MEDICARE, OTHER, SELFPAY ==
[2024-11-20 18:58] VITALS: BP 146/87
--- NOTE | 2024-11-20 20:24 | ED.MUSCINJ ---
HPI-Injury
General
Chief Complaint: Musculo-Skeletal Complaint
Source: patient
Exam Limitations: none
Time Seen by Provider: 11/20/24 19:46
Nursing documentation reviewed up to this point in time: agreed with
History of Present Illness-Injury
Is this injury a work related problem?: No
Is pt an associate of [facility]/[place]?: No
Initial Injury comments:
Patient to ED with complaint of increasing pain and swelling to right knee. SHe has chronic pain to this knee. Has had infections into the knee in the past. States pain has gotten worse over the past 3 days. Denies fever/chills, denies trauma.
She has an appointment scheduled with ortho for friday. Brought to ED tonight by family for pain control.
Past History
Past History
ED Past Medical History: Arrthythmia (afib on eliquis) and Hyperthyroidism
ED Past Surgical History: Cardiac and Orthopedic
Review of Systems
Review of Systems
Allergies reviewed?: Yes
All Other Systems: ROS reviewed and negative except as documented in HPI and ROS
Constitutional: Reports no symptoms
EENT: Reports no symptoms
Respiratory: Reports no symptoms
Cardiac: Reports no symptoms
ABD/GI: Reports no symptoms
Musculoskeletal: Reports joint pain (pain, swelling right knee)
Skin: Reports no symptoms
Neurological: Reports no symptoms
Psychiatric: Reports no symptoms
Musculoskeletal Injury Exam
Musculoskeletal Injury Exam
Right Anterior Knee:
Pain with Movement?: Moderate
Tender to palpation?: Moderate
Soft tissue swelling?: Moderate
External deformity and angulation?: None
Joint effusion?: Moderate
Contusion?: None
Hematoma-local bleeding into tissue?: None
Strain- Sprain- Tear (Connective tissue injury)?: None
Crepitus with movement?: No
Joint instability?: No
Malalignment/deformity?: No
Range of motion: Limited
Distal skin color and temperature: normal-warm & good color
Capillary Refill: normal
Normal distal neurovascular exam?: Yes
Peripheral Pulses: posterior tibial (right): 3+ and dorsalis pedis (right): 3+
Phy Exam
General Physical Exam
General Presentation: well appearing and mild distress
General age: appears stated age
General Skin: warm and dry
General Habitus: frail
Musculoskeletal Exam
Musculoskeletal Exam: neuro vasc intact
Skin Exam
Skin Exam: normal color, warm/dry and no rash
Psychiatric Exam
Psychiatric Exam: normal mood/affect
Injury Course
Orders/Labs/Results
Orders:
Orders
11/20/24 19:02
Knee, Right 4 or More Views [CR Knee- Right 4 Or More View*] Urgent
Comment:
Reason For Exam: pain/swelling
11/20/24 20:22
Oxycodone [Roxicodone] 5 mg PO NOW STA
Procedures
Incision/Drainage/Joint Aspiration
Right Medial Knee:
Anethesia: 1% Lidocaine with Epi
Preparation: cleaned with Betadine
Type of procedure: aspiration
How much fluid was obtained?: number in mls (35)
Fluid description: bloody
*Radiology
Radiology exam reviewed: radiology read reviewed
*Pulse Oximetry
SaO2: 98
Oxygen Mode of Delivery: Room air
Patient hypoxic: no
*Critical Care Note
Total Time (30-74mins, 75-104mins- exclusive of procedures): Not Applicable
Update Note
Update Note:
Patient to ED with report of increasing right knee pain. Has had this issue in the past. Has had prior joint aspirations, injections. XRay tonight confirms arthritic changes to knee, +effusion. Joint aspiration attempted. 30ml blood aspirated
from knee. Pressure dressing applied. She denies any history of trauma. On Eliquis presently. WIll recommend ice, elevation, wili wrap during the day. SHe will follow up with ortho on Friday as scheduled. Given instructions on s/s to return to
ED and she is agreeable to plan.
ED Attending Note
-
Portions of this chart may have been created with voice recognition software.� Occasional wrong word or��sound alike� substitutions may have occurred due to the inherent limitations of voice recognition software.
Discharge Plan
Departure
Patient Disposition: Home (Routine Discharge)
Date of Disposition: 11/20/24
Time of Disposition: 20:22
Patient with high blood pressure during this ER visit?: No
Condition: Good
Covid-19: Not Applicable
Discharge Problem:
Acute knee pain
Instructions: Knee Pain (DC), Using Cold for Pain
Prescriptions:
New
oxycodone 5 mg capsule
5 mg PO Q6H PRN (Reason: Pain) Qty: 10 0RF
No Action
multivitamin Tablet
1 tab PO DAILY
ascorbic acid (vitamin C) [Vitamin C] 500 mg Tablet
500 mg PO DAILY
lutein 20 mg Capsule
20 mg PO DAILY
latanoprost 0.005 % Drops
1 drp RIGHT EYE HS
thyroid (pork) 65 mg Tablet
65 mg PO DAILY
vitamin D3-vitamin K2 25 mcg (1,000 unit)-90 mcg Tablet,Disintegrating
1 tab PO DAILY
cyanocobalamin (vitamin B-12) 1,000 mcg/mL Drops
1 ml PO DAILY
propranolol 80 mg capsule,extended release 24 hr
20 mg PO BID
Eliquis 2.5 mg Tablet
2.5 mg PO BID Qty: 60 0RF
Referrals:
Ben Martinez DO [Family Provider, Internal Medicine]
Activity Restrictions/Additional Instructions:
Follow up with orthopedics on . as scheduled.
Interventions
Interventions:
*Risk Screen - Suicide Last Done: 11/20/24 19:00
*General Assessment Last Done: 11/20/24 19:00
*Neglect/Abuse Screening Last Done: 11/20/24 19:00
*ED COVID-19 Vaccine History Last Done: 11/20/24 19:00
*ED Influenza Vaccine History Last Done: 11/20/24 19:00
Discharge Date and Time
Print Language: SWISS
[2024-11-20] MEDS: ROXICODONE 5 MG PO (20:43)
== END 2024-11-20 20:50 | disposition home or self-care (01) ==
LOC: EMR 18:55
PROVIDERS: EMERGENCY PHYSICIAN Emergency Medicine; FAMILY PHYSICIAN Internal Medicine
DX: M25.561 Pain in right knee (principal); M25.461 Effusion, right knee; M17.11 Unilateral primary osteoarthritis, right knee; I48.91 Unspecified atrial fibrillation; E05.90 Thyrotoxicosis, unspecified without thyrotoxic crisis or storm; Z79.01 Long term (current) use of anticoagulants
CPT/HCPCS: 99283; 20610; 73564